=== PATIENT | male | born 1940 | race Caucasian/White ===

== ENCOUNTER 2019-07-12 11:52 | Inpatient (IN) | payer MEDICARE ==
[~2019-07-12] VITALS: Ht 177.8 cm; Wt 61.4 kg
[2019-07-12 12:30] VITALS: BP 96/44
[2019-07-12] MEDS ORDERED: DILT180C2 PO (13:19)
[2019-07-12] MEDS ORDERED: DOCU100C28 PO (13:19)
[2019-07-12] MEDS ORDERED: mutivitamin PO (13:19)
[2019-07-12] MEDS ORDERED: ASPI81TA59 PO (13:19)
[2019-07-12] MEDS ORDERED: ALBUTEROL (13:19)
[2019-07-12 15:00] VITALS: BP 97/60
[2019-07-12 16:09] LABS: BASO % 1 % (0-3); EOS % 0 % (0-3); HEMATOCRIT 40.2 % (39.0-53.0); HEMOGLOBIN 13.7 g/dL (13.0-17.5); LYMPH # 0.5 x10^3/uL (1.0-4.8); LYMPH % 16 % (24-48); MEAN CORPUSCULAR HEMOGLOBIN 32 pg (25-35); MEAN CORPUSCULAR HGB CONC 34 g/dL (31-37); MEAN CORPUSCULAR VOLUME 94 fL (79-100); MONO # 0.2 x10^3/uL (0.0-1.1); MONO % 7 % (0-9); NEUT # 2.6 x10^3/uL (1.8-7.7); NEUT % 76 % (31-73); RED CELL DISTRIBUTION WIDTH 20.1 % (11.5-14.5); WHITE BLOOD COUNT 3.4 x10^3/uL (4.0-11.0)
--- NOTE | 2019-07-12 16:11 | PDOC2 ---
GI CONSULT Reason For Consult: anorexia, weight loss HPI: HPI: 78 y/o male directly admitted by Dr. Stephens. He lives in [place] and had testing at a hospital in [place] a couple weeks ago for early satiety, decreased appetite, shortness of breath, and weight loss. Symptoms began in 03/2019. He thinks some labs were abnormal and also says the CT showed some nodules that needed to be sampled. Also mentions "heart tests." His daughter lives in the area and works in some capacity with Dr. Stephens, so they decided he should come here to live with her for further workup. Denies reflux/heartburn, dysphagia (though he says "I've always had to really chew my food well"), n/v, abd pain, diarrhea, hematochezia, or melena. Takes a stool softener now - thinks because he's eating less. Estimates 30 lb weight loss. Had a couple EGDs after vagotomy >10 years ago that were reportedly unremarkable. More than one colonoscopy in the past - first w/ a polyp, then normal repeat exams w/ last about 10 years ago. H/o PUD s/p parietal cell vagotomy in 1978. Also s/p cholecystectomy (no st ones). No liver or pancreas history. Takes ASA QD. PMH: PMH: ?HTN parietal cell vagotomy, cholecystectomy, right shoulder surgery, umbilical and right inguinal hernia repairs FH: Family History: No pertinent hx Social History: Smoke: Quit ALCOHOL: other (1 [employer] daily) Drugs: None ROS: GEN: Denies fevers, chills, sweats HEENT: Denies blurred vision, sore throat CV: Denies chest pain RESP: +SOA GI: Per HPI : Denies hematuria, dysuria ENDO: +weight loss NEURO: Denies confusion, dizziness MSK: Denies weakness, joint pain/swelling SKIN: Denies jaundice, pruritus Vitals: Vitals: Vital Signs Date Time Temp Pulse Resp B/P (MAP) Pulse Ox O2 Delivery O2 Flow Rate FiO2 07/12/19 15:00 97.3 76 18 97/60 (72) 91 Room Air 97.3 Allergies: Coded Allergies: No Known Drug Allergies (Unverified , 07/12/19) PE: GEN: quite thin, looks ill - voice is very weak w/ frequent throat clearing HEENT: Atraumatic, PERRL LUNGS: diminished anteriorly HEART: RR +murm ABD: NABS, S/ND/NT EXTREMITY: No edema SKIN: No rashes, no jaundice NEURO/PSYCH: A & O 3 A/P: A/P: Early satiety, anorexia, weight loss H/o abnormal abdominal imaging recently in [place] H/o PUD, s/p parietal cell vagotomy CRC screen, h/o colon polyp - UTD S/p cholecystectomy -- Await labs and imaging. Will also try to get records from [place]. 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 Other per Dr. Villasenor. DANELLE MORROW July 12, 2019 16:11
[2019-07-12 16:30] LABS: ALBUMIN 2.2 g/dL (3.4-5.0); ALBUMIN/GLOBULIN RATIO 1.2 (1.0-1.7); CALCIUM 9.6 mg/dL (8.5-10.1); GFR 72.1; POTASSIUM 4.5 mmol/L (3.5-5.1)
[2019-07-12 16:32] LABS: PLATELET COUNT 15 x10^3/uL (140-400)
[2019-07-12 16:34] LABS: ANISOCYTOSIS MOD; PLT ESTIMATE DECREASED (ADEQUATE); POLYCHROMASIA SLIGHT
--- NOTE | 2019-07-12 16:38 | RAD ---
Examination: CT CHEST ABDOMEN PELVIS WO History: Reason: [id number] / Spl. Instructions: / History: Comparison/Correlation: None Findings: Axial images of the chest, abdomen, and pelvis were obtained without contrast. Small bilateral pleural effusions are present. Very marked calcific involvement of the left circumflex coronary artery and to lesser extent the right coronary and left anterior cerebral arteries is noted. Small slightly greater than expected pericardial fluid is noted. Severe centrilobular emphysematous involvement of the lung dutta is present. Minimal bibasilar atelectasis is present. Nodule along the posterior aspect of the right major fissure is present measuring 0.6 cm diameter. This probably represents a perifissural lymph node or other benign process. Enlarged subcarinal lymph node is present measuring 2 cm x 2.9 cm. Aorticopulmonary window lymph node with diameter of 1 cm in short axis is present. Fullness of the right hilum is present with soft tissue density evident. Irregular margins with spiculation about the soft tissue densities best seen on axial image 28. Coarse calcification is present along the superior margin of the right pulmonary artery at the hepatic hilum inferior to this soft tissue density with spiculation. This soft tissue density process measures 3 cm transverse by 2.3 cm longitudinal by 2.4 cm anteroposterior. Encasement of the right upper lobe bronchus is noted. Mild right apical pleural thickening noted. Subtle nodular contour of the liver is present. Spleen is enlarged measuring 16.2 cm longitudinal. Pancreas is unremarkable. The gallbladder fossa is unremarkable. Kidneys are unremarkable. Renal arterial calcifications are noted. Adrenal glands are unremarkable. Minimal ascites about the liver is present anteriorly. Marked calcific involvement of the abdominal aorta and iliac arteries is noted. No inflammatory changes identified about the cecum. Appendix is not well delineated due to minimal mesenteric fat. Urinary bladder is unremarkable. Prostate gland is within upper limits of normal for size. Small amount of pelvic free fluid is present in this male patient. No extraluminal gas. Bony structures are unremarkable. Impression: Soft tissue density with encasement of the right upper lobe. Spiculated margins noted. Calcification is present subjacent to this process. Enlarged subcarinal lymph node and borderline to slightly enlarged aorticopulmonary window lymph node. Neoplastic etiology is of concern although a chronic inflammatory process is also a possibility. Correlate with prior exams if available. Consider further evaluation with PET CT exam and possibly CT chest with contrast. Subtle nodular contour of the liver of concern for cirrhosis or other hepatic fibrotic process. Marked splenomegaly is noted of concern for portal hypertension although no significant varices noted. Severe emphysematous involvement of the lung. Small bilateral pleural effusions. Minimal abdominal ascites. Pelvic free fluid. PQRS Compliance Statement: One or more of the following individualized dose reduction techniques were utilized for this examination: 1. Automated exposure control 2. Adjustment of the mA and/or kV according to patient size 3. Use of iterative reconstruction technique Electronically signed by: Librado Whittington MD (07/12/2019 4:36 PM) [id number]
--- NOTE | 2019-07-12 17:39 | NUR ---
Multiple attempts made to contact Dr. Rodrick Maradiaga but failed to call in consult.
[2019-07-12] MEDS: IV 1/2 NORMAL SALINE 1,000 ML IV SCH (17:52)
[2019-07-12 19:09] LABS: BILIRUBIN,URINE NEGATIVE (NEG); CLARITY,URINE CLEAR; NITRITE,URINE NEGATIVE (NEG); PH,URINE 5.5 (<5.0-8.0); PROTEIN,URINE NEGATIVE (NEG-TRACE)
[2019-07-12 19:20] LABS: COLOR,URINE DK YELLOW
[2019-07-12 19:22] LABS: BACTERIA,URINE 0 /HPF (0-FEW); RBC,URINE 0 /HPF (0-2); SQUAMOUS EPITHELIAL CELL,UR FEW /LPF; WBC,URINE 0 /HPF (0-4)
[2019-07-12 19:23] VITALS: BP 97/52
[2019-07-12 19:23] LABS: HYALINE CASTS, URINE FEW /HPF
--- NOTE | 2019-07-12 22:31 | HP ---
ADMIT DATE: 07/12/2019 CHIEF COMPLAINT AND HISTORY OF PRESENT ILLNESS: This 78-year-old white male was met by myself actually 2 days prior to this admission. 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 He has had decreased appetite. Has normal weight, he describes, at about 140 and was 160 in the office in 2 days prior. He was fatigued all the time. He complained of anorexia, was getting full very fast with any sort of eating. He had been more short of breath over the last couple of months with any sort of exertion. Heart rate recently has been as high as the 180s and he was started on Cardizem for this in [place]. It is not sure whether this was atrial fibrillation or not. He was also told that he may have a liver mass on a CAT scan. We tried to get records from [place] and we were unable to do so over the last couple of days as he continued to deteriorate. It was elected because of the profound weakness, failure to thrive and dehydration, to admit him to expedite workup and try to figure out what exactly is going on with him, although it is obvious that he is gravely ill. PAST MEDICAL HISTORY: Remarkable for COPD, questionable history of atrial fibrillation. PAST SURGICAL HISTORY: Remarkable for cholecystectomy, a prior right shoulder surgery, he has had a hernia repair and he has had some skin cancers removed. MEDICATIONS: Include albuterol inhaler for p.r.n. use and Cardizem CD 180 daily. ALLERGIES: He has no known drug allergies. SOCIAL HISTORY: Denies use tobacco. Uses alcohol up to once a week. Does not have any illicit drug use. He is . FAMILY HISTORY: Noncontributory. REVIEW OF SYSTEMS: As mentioned above. PHYSICAL EXAMINATION: GENERAL: He is a thin, frail, cachectic-appearing white male, who appears ill. VITAL SIGNS: Stable. He is afebrile. Blood pressure is on the low side at 91/70. HEAD, EYES, EARS, NOSE AND THROAT: Unremarkable. There is no icterus. NECK: Supple. No adenopathy or thyromegaly. CHEST: Reveals somewhat decreased breath sounds, but clear bilaterally. HEART: Regular rate and rhythm, without S3, S4 or murmur. ABDOMEN: Soft, nontender, without hepatosplenomegaly or masses appreciated. EXTREMITIES: Without cyanosis, clubbing or edema. NEUROLOGIC: Intact. IMPRESSION: Weight loss, anorexia and dehydration with multiple other problems listed above. PLAN: The patient has been admitted. I am going to get a CT scan of the abdomen. We will ask GI to see him in consultation with the anorexia. It has just come to my attention that his initial platelet count on admission was 17,000, white count depressed at less than 4000. I am going to ask Hematology if they would see in addition with a concern here being some sort of bone marrow process possibly going on in addition. ANATOLIY MENDEZ MD DR: MARBIN/alton JOB#: [id number] / [id number]
[2019-07-12 22:56] VITALS: BP 93/52
[2019-07-13 03:05] VITALS: BP 90/55
[2019-07-13 07:00] VITALS: BP 99/60
[2019-07-13] MEDS: PANTOPRAZOLE 40 MG TABLET.DR. PO SCH (08:17)
[2019-07-13] MEDS: DOCUSATE SODIUM 100 MG CAPSULE. PO SCH (08:17)
[2019-07-13] MEDS: MULTIVITAMIN with MINERAL TABLET. PO SCH (08:18)
[2019-07-13] MEDS ORDERED: ASPIRIN CHEWABLE 81 MG TABLET. PO SCH (09:00)
[2019-07-13 10:05] LABS: BASO % 1 % (0-3); EOS % 0 % (0-3); HEMATOCRIT 42.1 % (39.0-53.0); LYMPH # 0.5 x10^3/uL (1.0-4.8); LYMPH % 15 % (24-48); MEAN CORPUSCULAR HEMOGLOBIN 31 pg (25-35); MEAN CORPUSCULAR HGB CONC 33 g/dL (31-37); MEAN CORPUSCULAR VOLUME 94 fL (79-100); MONO # 0.2 x10^3/uL (0.0-1.1); MONO % 5 % (0-9); NEUT # 2.6 x10^3/uL (1.8-7.7); NEUT % 79 % (31-73); RED BLOOD COUNT 4.48 x10^6/uL (4.30-5.70); RED CELL DISTRIBUTION WIDTH 20.2 % (11.5-14.5); WHITE BLOOD COUNT 3.2 x10^3/uL (4.0-11.0)
[2019-07-13 10:25] LABS: PLATELET COUNT 13 x10^3/uL (140-400)
[2019-07-13 10:31] VITALS: BP 96/54
[2019-07-13] MEDS: IV 1/2 NORMAL SALINE 1,000 ML IV SCH (11:50)
--- NOTE | 2019-07-13 12:26 | PDOC ---
Provider Note Provider Note severe low platellets, wbc 3200, mcv ok- also TAs high but ct liver shows no masses- large spleen present- he denies ETOH or prior hepa titis- hiro likely lung CA as well- labs ordered re source of cirrhosis, dc asa, onco consult- will need lung mass bx, poss liver bx PURA BEE MD July 13, 2019 12:26
[2019-07-13 13:41] LABS: ALBUMIN 2.3 g/dL (3.4-5.0); DIRECT BILIRUBIN 1.3 mg/dL (0.0-0.2); TOTAL BILIRUBIN 2.2 mg/dL (0.2-1.0); TOTAL PROTEIN 4.3 g/dL (6.4-8.2)
[2019-07-13 13:43] LABS: PROTHROMBIN TIME PATIENT 15.5 SEC (11.7-14.0)
[2019-07-13 14:39] VITALS: BP 94/54
[2019-07-13 19:18] VITALS: BP 96/55
[2019-07-13 23:00] VITALS: BP 99/56
[2019-07-14 03:13] VITALS: BP 92/53
[2019-07-14 06:51] VITALS: BP 98/55
[2019-07-14] MEDS: PANTOPRAZOLE 40 MG TABLET.DR. PO SCH (07:58)
[2019-07-14] MEDS: DOCUSATE SODIUM 100 MG CAPSULE. PO SCH (07:58)
[2019-07-14] MEDS: MULTIVITAMIN with MINERAL TABLET. PO SCH (07:58)
[2019-07-14] MEDS: IV 1/2 NORMAL SALINE 1,000 ML IV SCH (07:59)
--- NOTE | 2019-07-14 09:12 | PDOC ---
Provider Note Provider Note vss, exam same-, no new bruising- hep b/c and others pending, re cause of cirrhosis- daily platelets, transfuse if he bleeds PURA BEE MD July 14, 2019 09:12
[2019-07-14 10:32] VITALS: BP 90/55
[2019-07-14 14:41] VITALS: BP 93/55
[2019-07-14 19:00] VITALS: BP 96/55
[2019-07-14 22:59] VITALS: BP 95/55
[2019-07-15 03:00] VITALS: BP 102/58
[2019-07-15] MEDS: IV 1/2 NORMAL SALINE 1,000 ML IV SCH (03:15)
[2019-07-15 07:00] VITALS: BP 109/61
--- NOTE | 2019-07-15 07:24 | PDOC ---
GENERAL General: vss and afebrile. awake and alert. platelet count 15K this am. awaiting hematology/oncology evaluation. exam stable. will ask for ID opinion with quest ion of TB in past. VITAL SIGNS/I&O Vital Signs/I&O: Vital Signs Date Time Temp Pulse Resp B/P (MAP) Pulse Ox O2 Delivery O2 Flow Rate FiO2 07/15/19 03:00 98.3 82 22 102/58 (73) 94 Nasal Cannula 2.0 98.3 I & O 07/14/19 07/14/19 07/15/19 15:00 23:00 07:00 Intake Total 840 ml 100 ml Output Total 700 ml 160 ml 350 ml Balance -700 ml 680 ml -250 ml ALLERGIES Allergies: Allergies Coded Allergies Type Severity Reaction Last Updated Verified No Known Drug Allergies 07/12/19 No LAB Lab: Laboratory Tests Test 07/15/19 04:36 Platelet Count 15 x10^3/uL (140-400) *L Laboratory Tests 07/15/19 04:36 ANATOLIY MENDEZ MD Jul 15, 2019 07:24
--- NOTE | 2019-07-15 08:17 | PDOC ---
Infectious Disease Note Vital Sign Vital Signs Vital Signs Date Time Temp Pulse Resp B/P (MAP) Pulse Ox O2 Delivery O2 Flow Rate FiO2 07/15/19 07:00 97.7 80 20 109/61 (77) 93 Nasal Cannula 2.0 97.7 Labs Lab Laboratory Tests Test 07/15/19 04:36 Platelet Count 15 x10^3/uL (140-400) Objective Assessment pt seen, consult dictated Plan Plan of Care // CLAY DEY MD Jul 15, 2019 08:17
--- NOTE | 2019-07-15 08:41 | PDOC ---
Provider Note Provider Note IR NOTE Lung biopsy requested. Limited non contrast enhanced ct chest shows an illdefined right hilar mass like consolidation. This is not amenable to percutaneous biopsy by position. Endobronchial biopsy may be possible, would defer to Pulm in that regard. Additionally, there is significant emphysema and patient currently has severe thrombocytopenia. Agree with recommendation for PET/CT. There are some small, but mildly prominent lymph nodes in the right axilla. If they are PET avid, would recommend biopsy of these first. YAMILA TAM MD Jul 15, 2019 08:41
[2019-07-15] MEDS: MULTIVITAMIN with MINERAL TABLET. PO SCH (09:47)
[2019-07-15] MEDS: DOCUSATE SODIUM 100 MG CAPSULE. PO SCH (09:47)
[2019-07-15] MEDS: PANTOPRAZOLE 40 MG TABLET.DR. PO SCH (09:48)
--- NOTE | 2019-07-15 09:56 | PDOC ---
Subjective: Subjective: Feels fine, no complaints. Objective: Objective: D/w nurse - awaiting heme/onc opinion. D/w Dr. Ennis. Reviewed IR note - ill defined right hilar mass like consolidation not amenable to percutaneous biopsy, agree w/ recommendation for PET/CT. Pulm asked to see, note orders for bone marrow biopsy. Vital Signs: Vital Signs Date Time Temp Pulse Resp B/P (MAP) Pulse Ox O2 Delivery O2 Flow Rate FiO2 07/15/19 07:00 97.7 80 20 109/61 (77) 93 Nasal Cannula 2.0 97.7 Labs: Laboratory Tests Test 07/15/19 04:36 Platelet Count 15 x10^3/uL Imaging: C/A/P CT Impression: Soft tissue density with encasement of the right upper lobe. Spiculated margins noted. Calcification is present subjacent to this process. Enlarged subcarinal lymph node and borderline to slightly enlarged aorticopulmonary window lymph node. Neoplastic etiology is of concern although a chronic inflammatory process is also a possibility. Correlate with prior exams if available. Consider further evaluation with PET CT exam and possibly CT chest with contrast. Subtle nodular contour of the liver of concern for cirrhosis or other hepatic fibrotic process. Marked splenomegaly is noted of concern for portal hypertension although no si gnificant varices noted. Severe emphysematous involvement of the lung. Small bilateral pleural effusions. Minimal abdominal ascites. Pelvic free fluid. PE: GEN: thin, chronically ill LUNGS:diminished HEART: RRR ABD: non-tender NEURO/PSYCH: A & O 3 A/P: Thrombocytopenia, leukopenia, elevated LFTs RUL mass, lymphadenopathy, possible cirrhosis, splenomegaly H/o anorexia/early satiety, weight loss, PUD -- AFP pending. Will review w/ Dr. Villasenor. Hemodynamically unstable?: No Is patient in severe pain?: No Is NPO status required?: No DANELLE MORROW Jul 15, 2019 09:55
--- NOTE | 2019-07-15 10:57 | CONS ---
DATE OF CONSULTATION: PULMONARY CONSULTATION ATTENDING PHYSICIAN: Dr. Chery REASON FOR CONSULTATION: Lung mass, abnormal CT chest. HISTORY OF PRESENT ILLNESS: The patient is a 78-year-old male who was admitted to the hospital with increasing appetite and about 30-pound weight loss since March. [place]. His daughter works in [place] in the medical office. As a result, he was brought in for further evaluation. He smoked for about 25 years, 2 packs per day. He states he has been feeling fatigued and tired and has no energy and has failure to thrive and was admitted with dehydration. Imaging study was performed including a CT chest, abdomen and pelvis. I have reviewed the CT chest. The patient has a right upper lobe/hilar mass, which is spiculated. It is causing some narrowing of the right upper lobe. There is evidence of subcarinal lymphadenopathy and aortopulmonary lymphadenopathy. There are small basilar pleural effusions. There is also evidence of cirrhosis of liver and marked splenomegaly and portal hypertension. There is minimal abdominal ascites. I have been asked to see him for further evaluation. He denies any headaches, no nausea, vomiting or diarrhea. His LFTs were, however, abnormal. He has lower extremity edema. No focal weakness. His platelet count was only 15,000. PAST MEDICAL HISTORY: Significant for COPD and possible history of cirrhosis. He has a long history of alcoholism. History of atrial fibrillation. PAST SURGICAL HISTORY: Including cholecystectomy and right shoulder surgery and hernia repair. MEDICATIONS: Reviewed as listed in the [facility]AD. REVIEW OF SYSTEMS: Twelve-point system obtained. Pertinent positives discussed in my history of present illness, otherwise noncontributory. All systems that were negative were reviewed as well. ALLERGIES: None. SOCIAL HISTORY: Smoked for about 25 years up to 2 packs per day, quit 20+ years ago. History of alcoholism with beer daily for 35-40 years. FAMILY HISTORY: Noncontributory to lungs. PHYSICAL EXAMINATION: VITAL SIGNS: Reviewed. Pulse ox 93% on 2 liters, afebrile. NECK: Supple. LUNGS: With diminished breath sounds. CARDIOVASCULAR: With regular rate. ABDOMEN: Soft. EXTREMITIES: With bilateral pitting edema. He has petechiae in his upper and lower extremities and some ecchymosis in the upper extremities. LABORATORY DATA: COVID-19 was negative. BUN is 38 and creatinine 1.0. LFTs were abnormal with a bilirubin of 2.2, AST 121 and ALT 86. Albumin is 2.3. INR is 1.3. IMPRESSION: 1. The patient with abnormal CT chest with a right hilar mass with encasement of the right upper lobe and some suspected endobronchial lesion along with subcarinal and aortopulmonary lymphadenopathy and thrombocytopenia. 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 2. A 30-pound weight loss in the last few months. Highly consistent with underlying malignancy. No suspicion for TB 3. Thrombocytopenia, likely bone marrow involvement with cancer vs related to Cirrhosis. 4. Long history of tobacco use, suspect underlying severe chronic obstructive pulmonary disease. 5. Long history of alcoholism with abnormal LFTs. A CT abdomen consistent with cirrhosis. 6. COVID negative. RECOMMENDATIONS: 1. I have discussed with the patient in detail. At this time, although the CT chest findings are amenable to biopsy with bronchoscopy; however, due to his severe thrombocytopenia and coagulopathy, he will be high risk for bleeding. The next best option would be bone marrow aspiration as a bone marrow metastasis is suspected and that would be more safer option. 2. Whether we make a diagnosis or not, the patient has advanced cancer with poor functional status and failure to thrive. He would not be a candidate for any form of treatment or cure. We will get an Oncology consult. 3. We would also recommend hospice. 4. Follow GI recommendation. 5. Discussed with RN and we will discuss with Interventional Radiology about bone marrow aspiration. Proceed in am d/w Dr Kessler. ALBARO SIDHU MD DR: JENNIFER/alton JOB#: [id number] / [id number]
[2019-07-15 11:00] VITALS: BP 95/54
--- NOTE | 2019-07-15 11:53 | NUR ---
SS following for discharge planning. SS reviewed pt chart and discussed with pt RN. Pt is from home is currently requiring oxygen. Pt getting bone marrow biopsy today. Pt is COVID19 negative. Pt was on services with [facility], ; fax [phone]. SS will continue to follow for discharge planning.
--- NOTE | 2019-07-15 12:13 | CONS ---
DATE OF CONSULTATION: 07/15/2019 REQUESTING PHYSICIAN: Dr. Danny Stephens. REASON FOR CONSULTATION: Possible TB. HISTORY OF PRESENT ILLNESS: This is a 78-year-old gentleman who [place] who was by connection of the doctor Kat's nurse practitioner, ended up here for workup. The patient has been losing weight. The patient has been thin, cachectic and no appetite. Denies any fever, denies any night sweats or chills. Does have cough as he has emphysema, but never had blood in the sputum, he says. Denies any nausea, vomiting, diarrhea. Denies any headache, visual symptoms, chest pain or abdominal pain. PAST MEDICAL HISTORY: Positive for COPD and possible atrial fibrillation history in the past. Also, has had cholecystectomy, right shoulder surgery, hernia repair done and skin cancer removal done. SOCIAL HISTORY: Negative for smoking. The patient did have a 30-year smoking history, quit about 20 or so years ago. Occasional alcohol use. No drug use. The patient has had and son had been diagnosed in 80s with what sounds like latent TB and they had been treated both. At that time, he was checked, was negative as apparently they got it from the hospital that they were working both. The patient has been to multiple countries and multiple times to the [place]. ALLERGIES: No known drug allergies. CURRENT MEDICATIONS: Reviewed. REVIEW OF SYSTEMS: As per HPI, all other systems reviewed and are negative. PHYSICAL EXAMINATION: GENERAL: Alert, oriented gentleman, not in any distress. He is thin, cachectic gentleman. VITAL SIGNS: Stable, afebrile. HEENT: NAD. NECK: Supple, no JVP, no lymphadenopathy. LUNGS: Clear. HEART: S1, S2 regular. ABDOMEN: Benign. EXTREMITIES: No edema, cyanosis. SKIN: Unremarkable. NEUROLOGIC: The patient is alert, awake and appropriate. No focal neurologic deficit. LABORATORY DATA: White count is 3.2. His platelets are 15,000, hemoglobin 14.0. Urinalysis unremarkable. Electrolytes are unremarkable with a BUN 38, creatinine 1. His calcium is 9.6, total bilirubin is 2.0. AST is 115, ALT is 84, alkaline phosphatase is 535, total protein is low, albumin is 2.2. CT of the abdomen and pelvis showed soft tissue density with encasement of the right upper lobe spiculated margins, calcification is present to this process, enlarged subcarinal lymph node and borderline slightly enlarged aortopulmonary window lymph node, subtle nodular contour of the liver concerning for cirrhosis, marked splenomegaly. IMPRESSION: 1. Right upper lobe mass concerning for malignancy. Tuberculosis is possible, although less likely. 2. Leukopenia and thrombocytopenia. The patient probably has that is secondary to cirrhosis of liver, although he may have a myelodysplastic syndrome. 3. Suspected cirrhosis of liver. 4. Malnutrition/cachexia. RECOMMENDATIONS: The patient is going to need biopsy. Either we will ask Pulmonary whether they can get it through the bronchoscopy and/or we may have to have Dr. Solis in Radiology to get a biopsy for the histopath as well as a biopsy for the bacterial, fungal and AFB stain and culture. Supportive care and we will continue to follow. Thank you very much, Dr. Stephens, for giving me the opportunity to participate in this patient's care. CLAY DEY MD DR: SAGE/alton JOB#: [id number] / [id number]
[2019-07-15 15:00] VITALS: BP 98/63
[2019-07-15 19:21] VITALS: BP 95/58
[2019-07-15 22:34] VITALS: BP 97/54
[2019-07-16] VITALS (20 sets, daily range): BP systolic 84–111; BP diastolic 40–70
[2019-07-16] MEDS: IV 1/2 NORMAL SALINE 1,000 ML IV SCH ×2 (00:30→21:25)
--- NOTE | 2019-07-16 07:50 | PDOC ---
GENERAL General: vss and afebrile. awake and alert. still anorexic but denies major complaints. for bone marrow biopsy today in hopes of elucidating cause of all symptoms. if not will need platelet transfusion and lung biopsy. help all consultants appreciated. continue same. VITAL SIGNS/I&O Vital Signs/I&O: Vital Signs Date Time Temp Pulse Resp B/P (MAP) Pulse Ox O2 Delivery O2 Flow Rate FiO2 07/16/19 03:09 97.4 77 18 90/52 (65) 93 Nasal Cannula 2.0 97.4 I & O 07/15/19 07/15/19 07/16/19 15:00 23:00 07:00 Intake Total 100 ml 200 ml 50 ml Output Total 1 ml 200 ml Balance 99 ml 0 ml 50 ml ALLERGIES Allergies: Allergies Coded Allergies Type Severity Reaction Last Updated Verified No Known Drug Allergies 07/12/19 No LAB Lab: Laboratory Tests Test 07/16/19 04:55 Platelet Count 14 x10^3/uL (140-400) *L Laboratory Tests 07/16/19 04:55 Justicifation of Admission Dx: Justifications for Admission: Justification of Admission Dx: Yes ANATOLIY MENDEZ MD Jul 16, 2019 07:50
[2019-07-16 08:51] LABS: BASO % 1 % (0-3); EOS % 0 % (0-3); HEMATOCRIT 37.3 % (39.0-53.0); HEMOGLOBIN 12.6 g/dL (13.0-17.5); LYMPH # 0.5 x10^3/uL (1.0-4.8); LYMPH % 17 % (24-48); MEAN CORPUSCULAR HEMOGLOBIN 32 pg (25-35); MEAN CORPUSCULAR HGB CONC 34 g/dL (31-37); MEAN CORPUSCULAR VOLUME 94 fL (79-100); MONO # 0.2 x10^3/uL (0.0-1.1); MONO % 8 % (0-9); NEUT # 2.2 x10^3/uL (1.8-7.7); NEUT % 75 % (31-73); RED BLOOD COUNT 3.96 x10^6/uL (4.30-5.70); RED CELL DISTRIBUTION WIDTH 20.4 % (11.5-14.5)
[2019-07-16 08:56] LABS: PLATELET COUNT 14 x10^3/uL (140-400)
--- NOTE | 2019-07-16 10:10 | PDOC ---
PULMONARY PROGRESS NOTES Subjective weak, no SOA Vitals Vital Signs Date Time Temp Pulse Resp B/P (MAP) Pulse Ox O2 Delivery O2 Flow Rate FiO2 07/16/19 07:00 97.9 83 20 84/40 (55) 92 Nasal Cannula 2.0 97.9 General: Alert, No acute distress Lungs: Clear Cardiovascular: S1 Abdomen: Soft Neuro Exam: Alert Extremities: Other (echymosis upper ext) Labs Laboratory Tests Test 07/15/19 04:36 07/15/19 04:38 07/16/19 04:55 Platelet Count 15 x10^3/uL (140-400) 14 x10^3/uL (140-400) Tumor Marker Alpha Fetoprotein 1.9 ng/mL (0.0-8.3) White Blood Count 3.0 x10^3/uL (4.0-11.0) Red Blood Count 3.96 x10^6/uL (4.30-5.70) Hemoglobin 12.6 g/dL (13.0-17.5) Hematocrit 37.3 % (39.0-53.0) Mean Corpuscular Volume 94 fL (79-100) Mean Corpuscular Hemoglobin 32 pg (25-35) Mean Corpuscular Hemoglobin Concent 34 g/dL (31-37) Red Cell Distribution Width 20.4 % (11.5-14.5) Neutrophils (%) (Auto) 75 % (31-73) Lymphocytes (%) (Auto) 17 % (24-48) Monocytes (%) (Auto) 8 % (0-9) Eosinophils (%) (Auto) 0 % (0-3) Basophils (%) (Auto) 1 % (0-3) Neutrophils # (Auto) 2.2 x10^3/uL (1.8-7.7) Lymphocytes # (Auto) 0.5 x10^3/uL (1.0-4.8) Monocytes # (Auto) 0.2 x10^3/uL (0.0-1.1) Eosinophils # (Auto) 0.0 x10^3/uL (0.0-0.7) Basophils # (Auto) 0.0 x10^3/uL (0.0-0.2) Laboratory Tests Test 07/16/19 04:55 White Blood Count 3.0 x10^3/uL (4.0-11.0) Red Blood Count 3.96 x10^6/uL (4.30-5.70) Hemoglobin 12.6 g/dL (13.0-17.5) Hematocrit 37.3 % (39.0-53.0) Mean Corpuscular Volume 94 fL (79-100) Mean Corpuscular Hemoglobin 32 pg (25-35) Mean Corpuscular Hemoglobin Concent 34 g/dL (31-37) Red Cell Distribution Width 20.4 % (11.5-14.5) Platelet Count 14 x10^3/uL (140-400) Neutrophils (%) (Auto) 75 % (31-73) Lymphocytes (%) (Auto) 17 % (24-48) Monocytes (%) (Auto) 8 % (0-9) Eosinophils (%) (Auto) 0 % (0-3) Basophils (%) (Auto) 1 % (0-3) Neutrophils # (Auto) 2.2 x10^3/uL (1.8-7.7) Lymphocytes # (Auto) 0.5 x10^3/uL (1.0-4.8) Monocytes # (Auto) 0.2 x10^3/uL (0.0-1.1) Eosinophils # (Auto) 0.0 x10^3/uL (0.0-0.7) Basophils # (Auto) 0.0 x10^3/uL (0.0-0.2) Medications Active Scripts Medications Dose Route/Sig Max Daily Dose Days Date Category [mutivitamin] 1 Tab PO DAILY 07/12/19 Reported [albuterlol] 07/12/19 Reported Children's Aspirin (Aspirin) 81 Mg Tab.chew 1 Tab PO DAILY 07/12/19 Reported Docusate Sodium 100 Mg Capsule 1 Cap PO DAILY 30 07/12/19 Reported Cardizem Cd (Diltiazem Hcl) 180 Mg Cap.er.24h 1 Cap PO DAILY 07/12/19 Reported Impression . 1. The patient with abnormal CT chest with a right hilar mass with encasement of the right upper lobe and some suspected endobronchial lesion along with subcarinal and aortopulmonary lymphadenopathy and thrombocytopenia. 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 2. A 30-pound weight loss in the last few months. Highly consistent with underlying malignancy. No suspicion for TB 3. Thrombocytopenia, likely bone marrow involvement with cancer vs related to Cirrhosis. 4. Long history of tobacco use, suspect underlying severe chronic obstructive pulmonary disease. 5. Long history of alcoholism with abnormal LFTs. A CT abdomen consistent with cirrhosis. 6. COVID negative. Plan . 1. I have discussed with the patient in detail. At this time, although the CT chest findings are amenable to biopsy with bronchoscopy; however, due to his severe thrombocytopenia and coagulopathy, he will be high risk for bleeding. The next best option would be bone marrow aspiration as a bone marrow metastasis is suspected and that would be more safer option. 2. Whether we make a diagnosis or not, the patient has advanced cancer with poor functional status and failure to thrive. He would not be a candidate for any form of treatment or cure. Follow Oncology rec 3. We would also recommend hospice. 4. Follow GI recommendation. 5. Discussed with RN and we will discuss with Interventional Radiology about bone marrow aspiration. scheduled today d/w Dr Kessler. ALBARO SIDHU MD Jul 16, 2019 10:10
--- NOTE | 2019-07-16 11:04 | PDOC ---
Objective: Objective: D/w nurse - no GI concerns, for bone marrow biopsy today. Stool charted today. Vital Signs: Vital Signs Date Time Temp Pulse Resp B/P (MAP) Pulse Ox O2 Delivery O2 Flow Rate FiO2 07/16/19 08:00 Room Air 07/16/19 07:00 97.9 83 20 84/40 (55) 92 2.0 97.9 Labs: Laboratory Tests Test 07/16/19 04:55 White Blood Count 3.0 x10^3/uL Red Blood Count 3.96 x10^6/uL Hemoglobin 12.6 g/dL Hematocrit 37.3 % Mean Corpuscular Volume 94 fL Mean Corpuscular Hemoglobin 32 pg Mean Corpuscular Hemoglobin Concent 34 g/dL Red Cell Distribution Width 20.4 % Platelet Count 14 x10^3/uL Neutrophils (%) (Auto) 75 % Lymphocytes (%) (Auto) 17 % Monocytes (%) (Auto) 8 % Eosinophils (%) (Auto) 0 % Basophils (%) (Auto) 1 % Neutrophils # (Auto) 2.2 x10^3/uL Lymphocytes # (Auto) 0.5 x10^3/uL Monocytes # (Auto) 0.2 x10^3/uL Eosinophils # (Auto) 0.0 x10^3/uL Basophils # (Auto) 0.0 x10^3/uL PE: GEN: sleeping, not awakened A/P: Thrombocytopenia, leukopenia, elevated LFTs RUL mass, lymphadenopathy, possible cirrhosis, splenomegaly -- Plans as above, will follow. Justicifation of Admission Dx: Justifications for Admission: Justification of Admission Dx: Yes DANELLE MORROW Jul 16, 2019 11:04
--- NOTE | 2019-07-16 11:22 | PDOC ---
Infectious Disease Note Subjective Subjective Patient is about the same. Bone marrow biopsy has been planned for today ROS ROS No nausea vomiting diarrhea chest pain shortness of breath Vital Sign Vital Signs Vital Signs Date Time Temp Pulse Resp B/P (MAP) Pulse Ox O2 Delivery O2 Flow Rate FiO2 07/16/19 08:00 Room Air 07/16/19 07:00 97.9 83 20 84/40 (55) 92 2.0 97.9 Physical Exam PHYSICAL EXAM GENERAL: Alert, oriented gentleman, not in any distress. He is thin, cachectic gentleman. VITAL SIGNS: Stable, afebrile. HEENT: NAD. NECK: Supple, no JVP, no lymphadenopathy. LUNGS: Clear. HEART: S1, S2 regular. ABDOMEN: Benign. EXTREMITIES: No edema, cyanosis. SKIN: Unremarkable. NEUROLOGIC: The patient is alert, awake and appropriate. No focal neurologic deficit. Labs Lab Laboratory Tests Test 07/16/19 04:55 White Blood Count 3.0 x10^3/uL (4.0-11.0) Red Blood Count 3.96 x10^6/uL (4.30-5.70) Hemoglobin 12.6 g/dL (13.0-17.5) Hematocrit 37.3 % (39.0-53.0) Mean Corpuscular Volume 94 fL (79-100) Mean Corpuscular Hemoglobin 32 pg (25-35) Mean Corpuscular Hemoglobin Concent 34 g/dL (31-37) Red Cell Distribution Width 20.4 % (11.5-14.5) Platelet Count 14 x10^3/uL (140-400) Neutrophils (%) (Auto) 75 % (31-73) Lymphocytes (%) (Auto) 17 % (24-48) Monocytes (%) (Auto) 8 % (0-9) Eosinophils (%) (Auto) 0 % (0-3) Basophils (%) (Auto) 1 % (0-3) Neutrophils # (Auto) 2.2 x10^3/uL (1.8-7.7) Lymphocytes # (Auto) 0.5 x10^3/uL (1.0-4.8) Monocytes # (Auto) 0.2 x10^3/uL (0.0-1.1) Eosinophils # (Auto) 0.0 x10^3/uL (0.0-0.7) Basophils # (Auto) 0.0 x10^3/uL (0.0-0.2) Objective Assessment IMPRESSION: 1. Right upper lobe mass concerning for malignancy. Tuberculosis is possible, although less likely. 2. Leukopenia and thrombocytopenia. The patient probably has that is secondary to cirrhosis of liver, although he may have a myelodysplastic syndrome. 3. Suspected cirrhosis of liver. 4. Malnutrition/cachexia. Plan Plan of Care Continue supportive care and work-up Overall prognosis is poor CLAY DEY MD Jul 16, 2019 11:22
[2019-07-16] MEDS ORDERED: FLUMAZENIL 0.5 MG/5 ML VIAL. IV ONE (12:02)
[2019-07-16] MEDS ORDERED: NALOXONE 0.4 MG/ML VIAL. ONE (12:02)
[2019-07-16] MEDS ORDERED: MIDAZOLAM HCL/PF 2 MG/2 ML VIAL. ONE (12:02)
[2019-07-16] MEDS ORDERED: fentaNYL PF VIAL 100 MCG/2 ML VIAL ONE (12:02)
[2019-07-16] MEDS ORDERED: LIDOCAINE 1% Multi-Dose 20 ML VIAL. ONE (12:03)
[2019-07-16] MEDS ORDERED: fentaNYL PF VIAL 100 MCG/2 ML VIAL IV ONE (12:45)
[2019-07-16] MEDS ORDERED: LIDOCAINE 1% Multi-Dose 20 ML VIAL. INJ ONE (12:45)
[2019-07-16] MEDS ORDERED: MIDAZOLAM HCL/PF 2 MG/2 ML VIAL. IV ONE (12:45)
[2019-07-16] MEDS: MULTIVITAMIN with MINERAL TABLET. PO SCH (13:51)
[2019-07-16] MEDS: DOCUSATE SODIUM 100 MG CAPSULE. PO SCH (13:51)
[2019-07-16] MEDS: PANTOPRAZOLE 40 MG TABLET.DR. PO SCH (13:51)
--- NOTE | 2019-07-16 15:38 | RAD ---
CT-guided bone marrow biopsy. 07/16/2019 1:34 PM Indication: Thrombocytopenia Discussion: The risks and benefits of the procedure, including but not limited to, bleeding and infection were discussed patient. Informed consent was obtained. The patient was brought to the CT scanner and placed in the prone position. A timeout procedure was performed. Firm Administrator CT imaging of the pelvis demonstrated left ilium amenable to bone marrow biopsy. The overlying soft tissues were prepped and draped using maximum sterile barrier technique. 1% lidocaine without epinephrine was administered for local anesthesia. Under intermittent CT guidance, an OncControl needle was advanced into the bone marrow of the left iliac crest. 2 Aspirates and 1 core biopsy samples were obtained. Samples were delivered to pathology was present at the time of procedure. The needle was removed and manual pressure held to achieve hemostasis. No immediate complications were identified. The procedure was performed under conscious sedation including continuous cardiopulmonary monitoring via dedicated sedation nurse. Sedation time: 20 minutes Impression: Successful CT-guided bone marrow biopsy of the left iliac crest . PQRS Compliance Statement: One or more of the following individualized dose reduction techniques were utilized for this examination: 1. Automated exposure control 2. Adjustment of the mA and/or kV according to patient size 3. Use of iterative reconstruction technique
--- NOTE | 2019-07-16 17:42 | NUR ---
RN NOTE dr. cho notified of 0700 vitals no new orders, continue to monitor unless patient becomes symptomatic.
[2019-07-17 02:33] VITALS: BP 88/53
[2019-07-17 07:00] VITALS: BP 116/97
--- NOTE | 2019-07-17 07:18 | NUR ---
Spoke with Dr. Stephens, do not hold Cardizem for patient SBP below 100.
--- NOTE | 2019-07-17 07:26 | PDOC ---
GENERAL General: vss and afebrile. awake and alert. no major complaints. had bone marrow biopsy yesterday and awaiting results. Platelet count 15K this am. some tachyarrythmias yesterday with holding of cardizem for lower blood pressure. discussed with nursing and will only hold if symptomatic which he was not yesterday am. VITAL SIGNS/I&O Vital Signs/I&O: Vital Signs Date Time Temp Pulse Resp B/P (MAP) Pulse Ox O2 Delivery O2 Flow Rate FiO2 07/17/19 02:33 98.0 90 18 88/53 (65) 95 Nasal Cannula 2.0 98.0 I & O 07/16/19 07/16/19 07/17/19 15:00 23:00 07:00 Intake Total 120 ml 0 ml 300 ml Output Total 300 ml Balance 120 ml 0 ml 0 ml ALLERGIES Allergies: Allergies Coded Allergies Type Severity Reaction Last Updated Verified No Known Drug Allergies 07/12/19 No MEDS Medications: Current Medications Medications (Trade) Dose Ordered Sig/Connie Route PRN Reason Start Time Stop Time Status Last Admin Dose Admin Midazolam HCl (Versed) 1 mg 1X ONCE IV 07/16/19 12:45 07/16/19 12:52 DC 07/16/19 12:50 Fentanyl Citrate (Fentanyl 2ml Vial) 50 mcg 1X ONCE IV 07/16/19 12:45 07/16/19 12:52 DC 07/16/19 12:50 Lidocaine HCl (Lidocaine 1% 20ml Vial) 6 ml 1X ONCE INJ 07/16/19 12:45 07/16/19 12:52 DC 07/16/19 12:50 LAB Lab: Laboratory Tests Test 07/17/19 03:28 Platelet Count 15 x10^3/uL (140-400) *L Laboratory Tests 07/17/19 03:28 Justicifation of Admission Dx: Justifications for Admission: Justification of Admission Dx: Yes Nutrition Consultation Dietary Evaluation: Recommendations by RD: Dietary education by RD, Increase Calorie Intake, Protein supplementation Comments: Continue w/regular diet as ordered, honor food preferences, and provide snacks as requested REC Ensure TID (chocolate) Expected Outcomes/Goals: PO intake to meet >75% est needs Interpretation of weight loss: >10% in 6 months Malnutrition Findings: Food and Nutrition Intake (Sev: <50% est energy req 5days Weight Status: Underweight APPL,ANATOLIY A MD Jul 17, 2019 07:26
--- NOTE | 2019-07-17 07:55 | PDOC ---
Infectious Disease Note Subjective Subjective Patient is about the same. Bone marrow biopsy done ROS ROS No nausea vomiting diarrhea chest pain Vital Sign Vital Signs Vital Signs Date Time Temp Pulse Resp B/P (MAP) Pulse Ox O2 Delivery O2 Flow Rate FiO2 07/17/19 07:00 97.8 135 18 116/97 (103) 96 Nasal Cannula 2.0 97.8 Physical Exam PHYSICAL EXAM GENERAL: Alert, oriented gentleman, not in any distress. He is thin, cachectic gentleman. VITAL SIGNS: Stable, afebrile. HEENT: NAD. NECK: Supple, no JVP, no lymphadenopathy. LUNGS: Clear. HEART: S1, S2 regular. ABDOMEN: Benign. EXTREMITIES: No edema, cyanosis. SKIN: Unremarkable. NEUROLOGIC: The patient is alert, awake and appropriate. No focal neurologic deficit. Labs Lab Laboratory Tests Test 07/17/19 03:28 Platelet Count 15 x10^3/uL (140-400) Objective Assessment IMPRESSION: 1. Right upper lobe mass concerning for malignancy. Tuberculosis is possible, although less likely. 2. Leukopenia and thrombocytopenia. The patient probably has that is secondary to cirrhosis of liver, although he may have a myelodysplastic syndrome. 3. Suspected cirrhosis of liver. 4. Malnutrition/cachexia. Plan Plan of Care Continue supportive care and work-up Overall prognosis is poor Discussed with daughter at bedside CLAY DEY MD Jul 17, 2019 07:55
[2019-07-17] MEDS: DOCUSATE SODIUM 100 MG CAPSULE. PO SCH (08:35)
[2019-07-17] MEDS: PANTOPRAZOLE 40 MG TABLET.DR. PO SCH (08:35)
[2019-07-17] MEDS: MULTIVITAMIN with MINERAL TABLET. PO SCH (08:35)
--- NOTE | 2019-07-17 10:46 | PDOC ---
Subjective: Subjective: Doing okay - doesn't like eggs or potatoes but likes toast and going to drink Ensure and coffee. Objective: Objective: No GI concerns per nurse. Vital Signs: Vital Signs Date Time Temp Pulse Resp B/P (MAP) Pulse Ox O2 Delivery O2 Flow Rate FiO2 07/17/19 08:35 135 116/97 07/17/19 08:00 Room Air 07/17/19 07:00 97.8 18 96 2.0 97.8 Labs: Laboratory Tests Test 07/17/19 03:28 Platelet Count 15 x10^3/uL PE: GEN: NAD, up to chair - a few bites of toast eaten LUNGS: CTAB HEART: RRR ABD: S/ND/NT NEURO/PSYCH: A & O 3 A/P: Thrombocytopenia, leukopenia, elevated LFTs RUL mass, lymphadenopathy, possible cirrhosis, splenomegaly S/p bone marrow biopsy 07/16/19 -- Encouraged PO, awaiting results. Justicifation of Admission Dx: Justifications for Admission: Justification of Admission Dx: Yes ADNELLE MORROW Jul 17, 2019 10:46
--- NOTE | 2019-07-17 10:51 | PDOC ---
PULMONARY PROGRESS NOTES Subjective weak, no SOA Vitals Vital Signs Date Time Temp Pulse Resp B/P (MAP) Pulse Ox O2 Delivery O2 Flow Rate FiO2 07/17/19 08:35 135 116/97 07/17/19 08:00 Room Air 07/17/19 07:00 97.8 18 96 2.0 97.8 General: Alert, No acute distress Lungs: Clear Cardiovascular: S1 Abdomen: Soft Neuro Exam: Alert Extremities: Other (echymosis upper ext) Labs Laboratory Tests Test 07/16/19 04:55 07/17/19 03:28 White Blood Count 3.0 x10^3/uL (4.0-11.0) Red Blood Count 3.96 x10^6/uL (4.30-5.70) Hemoglobin 12.6 g/dL (13.0-17.5) Hematocrit 37.3 % (39.0-53.0) Mean Corpuscular Volume 94 fL (79-100) Mean Corpuscular Hemoglobin 32 pg (25-35) Mean Corpuscular Hemoglobin Concent 34 g/dL (31-37) Red Cell Distribution Width 20.4 % (11.5-14.5) Platelet Count 14 x10^3/uL (140-400) 15 x10^3/uL (140-400) Neutrophils (%) (Auto) 75 % (31-73) Lymphocytes (%) (Auto) 17 % (24-48) Monocytes (%) (Auto) 8 % (0-9) Eosinophils (%) (Auto) 0 % (0-3) Basophils (%) (Auto) 1 % (0-3) Neutrophils # (Auto) 2.2 x10^3/uL (1.8-7.7) Lymphocytes # (Auto) 0.5 x10^3/uL (1.0-4.8) Monocytes # (Auto) 0.2 x10^3/uL (0.0-1.1) Eosinophils # (Auto) 0.0 x10^3/uL (0.0-0.7) Basophils # (Auto) 0.0 x10^3/uL (0.0-0.2) Laboratory Tests Test 07/17/19 03:28 Platelet Count 15 x10^3/uL (140-400) Medications Active Scripts Medications Dose Route/Sig Max Daily Dose Days Date Category [mutivitamin] 1 Tab PO DAILY 07/12/19 Reported [albuterlol] 07/12/19 Reported Children's Aspirin (Aspirin) 81 Mg Tab.chew 1 Tab PO DAILY 30 07/12/19 Reported Docusate Sodium 100 Mg Capsule 1 Cap PO DAILY 30 07/12/19 Reported Cardizem Cd (Diltiazem Hcl) 180 Mg Cap.er.24h 1 Cap PO DAILY 07/12/19 Reported Impression . 1. The patient with abnormal CT chest with a right hilar mass with encasement of the right upper lobe and some suspected endobronchial lesion along with subcarinal and aortopulmonary lymphadenopathy and thrombocytopenia. 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 2. A 30-pound weight loss in the last few months. Highly consistent with underlying malignancy. No suspicion for TB 3. Thrombocytopenia, likely bone marrow involvement with cancer vs related to Cirrhosis. 4. Long history of tobacco use, suspect underlying severe chronic obstructive pulmonary disease. 5. Long history of alcoholism with abnormal LFTs. A CT abdomen consistent with cirrhosis. 6. COVID negative. Plan . 1. I have discussed with the patient in detail. At this time, although the CT chest findings are amenable to biopsy with bronchoscopy; however, due to his severe thrombocytopenia and coagulopathy, he will be high risk for bleeding. s/p bone marrow aspiration 07/15 to r/o bone marrow metastasis 2. Whether we make a diagnosis or not, the patient has advanced cancer with poor functional status and failure to thrive. He would not be a candidate for any form of treatment or cure. Follow Oncology rec 3. We would also recommend hospice. 4. Follow GI recommendation. 5. Discussed with RN and d/w Dr Kessler. ALBARO SIDHU MD Jul 17, 2019 10:51
[2019-07-17 11:00] VITALS: BP 97/58
[2019-07-17 14:58] VITALS: BP 95/60
[2019-07-17] MEDS: IV 1/2 NORMAL SALINE 1,000 ML IV SCH (16:10)
[2019-07-17 18:14] VITALS: BP 97/58
--- NOTE | 2019-07-17 19:15 | NUR ---
Assessment completed vss poc explained pt in bed at time of assessment and denied pain. Call light in reach will resume care and continue to monitor pt.
[2019-07-17 22:51] VITALS: BP 79/46
[2019-07-18] VITALS (7 sets, daily range): BP systolic 82–100; BP diastolic 43–53
[2019-07-18] MEDS: PANTOPRAZOLE 40 MG TABLET.DR. PO SCH (05:38)
[2019-07-18] MEDS: DOCUSATE SODIUM 100 MG CAPSULE. PO SCH (07:11)
[2019-07-18] MEDS: MULTIVITAMIN with MINERAL TABLET. PO SCH (07:59)
--- NOTE | 2019-07-18 08:36 | PDOC ---
GENERAL General: vss and afebrile. awake and alert and denies complaints. still eating poorly. c hest clear, heart regular, abdomen benign. 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 no metastatic carcinoma. further stains and flow cytometry pending. plans to follow. otherwise same. VITAL SIGNS/I&O Vital Signs/I&O: Vital Signs Date Time Temp Pulse Resp B/P (MAP) Pulse Ox O2 Delivery O2 Flow Rate FiO2 07/18/19 07:59 82 100/43 07/18/19 07:09 97.7 18 89 Nasal Cannula 3.0 97.7 I & O 07/17/19 07/17/19 07/18/19 15:00 23:00 07:00 Intake Total 480 ml 180 ml 200 ml Balance 480 ml 180 ml 200 ml ALLERGIES Allergies: Allergies Coded Allergies Type Severity Reaction Last Updated Verified No Known Drug Allergies 07/12/19 No Justicifation of Admission Dx: Justifications for Admission: Justification of Admission Dx: Yes Nutrition Consultation Dietary Evaluation: Recommendations by RD: Dietary education by RD, Increase Calorie Intake, Protein supplementation Comments: Continue w/regular diet as ordered, honor food preferences, and provide snacks as requested REC Ensure TID (chocolate) Expected Outcomes/Goals: PO intake to meet >75% est needs Interpretation of weight loss: >10% in 6 months Malnutrition Findings: Food and Nutrition Intake (Sev: <50% est energy req 5days Weight Status: Underweight ANATOLIY MENDEZ MD Jul 18, 2019 08:36
--- NOTE | 2019-07-18 10:00 | PDOC ---
Subjective: Subjective: Doing okay, says will try to drink Ensure. 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 Vital Signs: Vital Signs Date Time Temp Pulse Resp B/P (MAP) Pulse Ox O2 Delivery O2 Flow Rate FiO2 07/18/19 08:00 Nasal Cannula 2.0 07/18/19 07:59 82 100/43 07/18/19 07:09 97.7 18 89 97.7 PE: GEN: NAD, was asleep LUNGS: diminished anteriorly HEART: RRR ABD: S/ND/NT NEURO/PSYCH: A & O 3 A/P: Thrombocytopenia, leukopenia - s/p bone marrow biopsy 07/16/19 w/ initial path as above RUL mass, lymphadenopathy - not a candidate for bronchoscopy w/ low plt Elevated LFTs (last checked 07/12), possible cirrhosis, splenomegaly -- Encouraged PO. Justicifation of Admission Dx: Justifications for Admission: Justification of Admission Dx: Yes DANELLE MORROW Jul 18, 2019 10:00
--- NOTE | 2019-07-18 10:08 | PDOC ---
Infectious Disease Note Subjective Subjective Patient is about the same. Bone marrow biopsy done ROS ROS No nausea vomiting diarrhea fever Vital Sign Vital Signs Vital Signs Date Time Temp Pulse Resp B/P (MAP) Pulse Ox O2 Delivery O2 Flow Rate FiO2 07/18/19 08:00 Nasal Cannula 2.0 07/18/19 07:59 82 100/43 07/18/19 07:09 97.7 18 89 97.7 Physical Exam PHYSICAL EXAM GENERAL: Alert, oriented gentleman, not in any distress. He is thin, cachectic gentleman. VITAL SIGNS: Stable, afebrile. HEENT: NAD. NECK: Supple, no JVP, no lymphadenopathy. LUNGS: Clear. HEART: S1, S2 regular. ABDOMEN: Benign. EXTREMITIES: No edema, cyanosis. SKIN: Unremarkable. NEUROLOGIC: The patient is alert, awake and appropriate. No focal neurologic deficit. Objective Assessment IMPRESSION: 1. Right upper lobe mass concerning for malignancy. Tuberculosis is possible, although less likely. 2. Leukopenia and thrombocytopenia. The patient probably has that is secondary to cirrhosis of liver, although he may have a myelodysplastic syndrome. 3. Suspected cirrhosis of liver. 4. Malnutrition/cachexia. Plan Plan of Care Continue supportive care and work-up Overall prognosis is poor CLAY DEY MD Jul 18, 2019 10:08
--- NOTE | 2019-07-18 10:26 | PDOC ---
PULMONARY PROGRESS NOTES Subjective Awake and Alert, remains very frail and weak Denies SOB or cough Vitals Vital Signs Date Time Temp Pulse Resp B/P (MAP) Pulse Ox O2 Delivery O2 Flow Rate FiO2 07/18/19 08:00 Nasal Cannula 2.0 07/18/19 07:59 82 100/43 07/18/19 07:09 97.7 18 89 97.7 ROS: No Nausea, No Chest Pain, No Abdominal Pain, No Increase Cough General: Alert, No acute distress Lungs: Clear Cardiovascular: S1 Abdomen: Soft Neuro Exam: Alert Extremities: Other (echymosis upper ext) Labs Laboratory Tests Test 07/17/19 03:28 Platelet Count 15 x10^3/uL (140-400) Medications Active Scripts Medications Dose Route/Sig Max Daily Dose Days Date Category [mutivitamin] 1 Tab PO DAILY 07/12/19 Reported [albuterlol] 07/12/19 Reported Children's Aspirin (Aspirin) 81 Mg Tab.chew 1 Tab PO DAILY 30 07/12/19 Reported Docusate Sodium 100 Mg Capsule 1 Cap PO DAILY 30 07/12/19 Reported Cardizem Cd (Diltiazem Hcl) 180 Mg Cap.er.24h 1 Cap PO DAILY 07/12/19 Reported Impression . 1. The patient with abnormal CT chest with a right hilar mass with encasement of the right upper lobe and some suspected endobronchial lesion along with subcarinal and aortopulmonary lymphadenopathy and thrombocytopenia. 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 2. A 30-pound weight loss in the last few months. Highly consistent with underlying malignancy. No suspicion for TB 3. Thrombocytopenia, likely bone marrow involvement with cancer vs related to Cirrhosis. 4. Long history of tobacco use, suspect underlying severe chronic obstructive pulmonary disease. 5. Long history of alcoholism with abnormal LFTs. A CT abdomen consistent with cirrhosis. 6. COVID negative. Plan . 1. Although the CT chest findings are amenable to biopsy with bronchoscopy; however, due to his severe thrombocytopenia and coagulopathy, he will be high risk for bleeding. s/p bone marrow aspiration 07/15 to r/o bone marrow metastasis-- await bone marrow biopsy results -- spoke with pathologist staining pending however lymphoma is a possibility 2. Whether we make a diagnosis or not, the patient has advanced cancer with poor functional status and failure to thrive. He would not be a candidate for any form of treatment or cure. Follow Oncology rec 3. We would also recommend hospice. 4. Follow GI recommendation. 5. Discussed with RN GI PX: ALBARO Mart MD Jul 18, 2019 10:26
[2019-07-18] MEDS: IV 1/2 NORMAL SALINE 1,000 ML IV SCH (10:28)
--- NOTE | 2019-07-18 14:47 | NUR ---
Wound Care Wound Type/Assessment: Stage II Coccyx pressure ulcer, superficial, skin is peeling. Wound bed is red and non-granulated, small area of purplish bruising, periwound bright red and blanchable. Treatment Recommendations/Plan: Xeroform or vasoline gauze to wound, cover with Aquacel foam, change every 3-4 days and prn when soiled. Pt turned onto right side with wedge and pillows, heels floated. Turn [id number] to L or R sides only, except when eating. Education provided: to pt re: frequent repositioning and pressure redistribution, and no back laying, other than while eating, pt v/u. Offloading surface/device: pt is currently on a P500 bed, wedge and pillows, wheelchair cushion in chair. Recommended Referrals/Tests: N/A Discharge Recommendations for dressings: Xeroform or vasoline gauze to wound, cover with Aquacel foam, change every 3-4 days and prn when soiled.
[2019-07-19 03:31] VITALS: BP 88/42
[2019-07-19] MEDS: IV 1/2 NORMAL SALINE 1,000 ML IV SCH (05:33)
[2019-07-19] MEDS: PANTOPRAZOLE 40 MG TABLET.DR. PO SCH ×2 (05:33→07:58)
[2019-07-19 06:13] VITALS: BP 103/58
--- NOTE | 2019-07-19 07:47 | PDOC ---
GENERAL General: vss and afebrile. awake and alert. exam stable. still waiting on final bone mar row results with plans to follow. encouraged increased activity and po intake. VITAL SIGNS/I&O Vital Signs/I&O: Vital Signs Date Time Temp Pulse Resp B/P (MAP) Pulse Ox O2 Delivery O2 Flow Rate FiO2 07/19/19 06:13 97.8 81 15 103/58 (73) 96 Nasal Cannula 2.0 97.8 I & O 07/18/19 07/18/19 07/19/19 15:00 23:00 07:00 Intake Total 300 ml 600 ml 200 ml Output Total 200 ml 200 ml Balance 300 ml 400 ml 0 ml ALLERGIES Allergies: Allergies Coded Allergies Type Severity Reaction Last Updated Verified No Known Drug Allergies 07/12/19 No Justicifation of Admission Dx: Justifications for Admission: Justification of Admission Dx: Yes Nutrition Consultation Dietary Evaluation: Recommendations by RD: Dietary education by RD, Increase Calorie Intake, Protein supplementation Comments: Continue w/regular diet as ordered, honor food preferences, and provide snacks as requested REC Ensure TID (chocolate) Expected Outcomes/Goals: PO intake to meet >75% est needs Interpretation of weight loss: >10% in 6 months Malnutrition Findings: Food and Nutrition Intake (Sev: <50% est energy req 5days Weight Status: Underweight ANATOLIY MENDEZ MD Jul 19, 2019 07:47
[2019-07-19] MEDS: DOCUSATE SODIUM 100 MG CAPSULE. PO SCH (07:54)
[2019-07-19] MEDS: MULTIVITAMIN with MINERAL TABLET. PO SCH (07:58)
--- NOTE | 2019-07-19 09:34 | PDOC ---
Objective: Objective: D/w nurse - not eating much but did drink Ensure this morning, awaiting bone marrow, then plans for rehab. Vital Signs: Vital Signs Date Time Temp Pulse Resp B/P (MAP) Pulse Ox O2 Delivery O2 Flow Rate FiO2 07/19/19 08:00 Nasal Cannula 2.0 07/19/19 07:58 81 103/58 07/19/19 06:13 97.8 15 96 97.8 PE: GEN: NAD - many bottles on Ensure lined up on bedside tray LUNGS: NC HEART: RRR on monitor ABD: non-distended NEURO/PSYCH: sleeping, not awakened A/P: Thrombocytopenia, leukopenia RUL mass, lymphadenopathy Elevated LFTs, possible cirrhosis, splenomegaly -- Awaiting bone marrow biopsy results, will follow. Justicifation of Admission Dx: Justifications for Admission: Justification of Admission Dx: Yes DANELLE MORROW Jul 19, 2019 09:34
--- NOTE | 2019-07-19 10:25 | PDOC ---
PULMONARY PROGRESS NOTES Subjective Awake and Alert, remains very frail and weak Denies SOB or cough Vitals Vital Signs Date Time Temp Pulse Resp B/P (MAP) Pulse Ox O2 Delivery O2 Flow Rate FiO2 07/19/19 08:00 Nasal Cannula 2.0 07/19/19 07:58 81 103/58 07/19/19 06:13 97.8 15 96 97.8 ROS: No Nausea, No Chest Pain, No Abdominal Pain, No Increase Cough General: Alert, No acute distress Lungs: Clear Cardiovascular: S1 Abdomen: Soft Neuro Exam: Alert Extremities: Other (echymosis upper ext) Skin: Warm, Dry Medications Active Scripts Medications Dose Route/Sig Max Daily Dose Days Date Category [mutivitamin] 1 Tab PO DAILY 07/12/19 Reported [albuterlol] 07/12/19 Reported Children's Aspirin (Aspirin) 81 Mg Tab.chew 1 Tab PO DAILY 30 07/12/19 Reported Docusate Sodium 100 Mg Capsule 1 Cap PO DAILY 30 07/12/19 Reported Cardizem Cd (Diltiazem Hcl) 180 Mg Cap.er.24h 1 Cap PO DAILY 07/12/19 Reported Impression . 1. The patient with abnormal CT chest with a right hilar mass with encasement of the right upper lobe and some suspected endobronchial lesion along with subcarinal and aortopulmonary lymphadenopathy and thrombocytopenia. This is highly consistent with primary lung cancer with metastasis to the lymph nodes.? Lymphoma 2. A 30-pound weight loss in the last few months. Highly consistent with underlying malignancy. No suspicion for TB 3. Thrombocytopenia, likely bone marrow involvement with cancer vs related to Cirrhosis. 4. Long history of tobacco use, suspect underlying severe chronic obstructive pulmonary disease. 5. Long history of alcoholism with abnormal LFTs. A CT abdomen consistent with cirrhosis. 6. COVID negative. Plan . 1. Although the CT chest findings are amenable to biopsy with bronchoscopy; however, due to his severe thrombocytopenia and coagulopathy, he will be high risk for bleeding. s/p bone marrow aspiration 07/15 to r/o bone marrow metastasis-- await bone marrow biopsy results -- spoke with pathologist. No obvious cancer but staining pending as lymphoma is a possibility -- lymphoma markers pending 2. Whether we make a diagnosis or not, the patient has advanced cancer with poor functional status and failure to thrive. He would not be a candidate for any form of treatment or cure. Follow Oncology rec 3. We would also recommend hospice, 4. Follow GI recommendation. 5. Discussed with RN GI PX: ALBARO Mart MD Jul 19, 2019 10:25
[2019-07-19 10:38] VITALS: BP 94/64
[2019-07-19 15:00] VITALS: BP 89/62
[2019-07-19 19:16] VITALS: BP 89/38
[2019-07-19] MEDS ORDERED: DIGOXIN IV 500 MCG/2 ML AMPUL. IV ONE (22:00)
[2019-07-19 23:16] VITALS: BP 81/40
--- NOTE | 2019-07-19 23:35 | NUR ---
Patient heart rhythm went into A-fib RVR and heart rate running between 130-160 for a prolonged time. Contacted Dr. Stephens and a one time order of digoxin 0.25mcg. Heart Rate running between 105-120.
[2019-07-20] MEDS: IV 1/2 NORMAL SALINE 1,000 ML IV SCH ×2 (01:56→22:24)
[2019-07-20 03:56] VITALS: BP 80/51
[2019-07-20 07:15] VITALS: BP 77/45
--- NOTE | 2019-07-20 08:58 | PDOC ---
Provider Note Provider Note paf a few hours now nsr, has had in past echo done in [place] but no results=- will do echo, no metop re hypotension- repeat hepatic pane, cortisol- d/w daughter Justicifation of Admission Dx: Justifications for Admission: Justification of Admission Dx: Yes PURA BEE MD Jul 20, 2019 08:58
[2019-07-20] MEDS: DOCUSATE SODIUM 100 MG CAPSULE. PO SCH (09:00)
[2019-07-20] MEDS: MULTIVITAMIN with MINERAL TABLET. PO SCH (09:20)
[2019-07-20] MEDS: POLYETHYLENE GLYCOL 3350 17 GM PACKET. PO PRN (09:20)
[2019-07-20 10:18] LABS: ALBUMIN 1.9 g/dL (3.4-5.0); DIRECT BILIRUBIN 1.7 mg/dL (0.0-0.2); TOTAL BILIRUBIN 2.6 mg/dL (0.2-1.0); TOTAL PROTEIN 3.9 g/dL (6.4-8.2)
--- NOTE | 2019-07-20 10:55 | PDOC ---
PULMONARY PROGRESS NOTES Subjective Remains weak, Denies SOB or cough Vitals Vital Signs Date Time Temp Pulse Resp B/P (MAP) Pulse Ox O2 Delivery O2 Flow Rate FiO2 07/20/19 09:20 60 103/63 07/20/19 07:49 Nasal Cannula 3.0 07/20/19 07:15 97.7 18 88 97.7 ROS: No Nausea, No Chest Pain, No Abdominal Pain, No Increase Cough General: Alert, No acute distress Lungs: Clear Cardiovascular: S1 Abdomen: Soft Neuro Exam: Alert Extremities: Other (echymosis upper ext) Skin: Warm, Dry Labs Laboratory Tests Test 07/20/19 09:40 Total Bilirubin 2.6 mg/dL (0.2-1.0) Direct Bilirubin 1.7 mg/dL (0.0-0.2) Aspartate Amino Transf (AST/SGOT) 111 U/L (15-37) Alanine Aminotransferase (ALT/SGPT) 87 U/L (16-63) Alkaline Phosphatase 641 U/L (46-116) Total Protein 3.9 g/dL (6.4-8.2) Albumin 1.9 g/dL (3.4-5.0) Laboratory Tests Test 07/20/19 09:40 Total Bilirubin 2.6 mg/dL (0.2-1.0) Direct Bilirubin 1.7 mg/dL (0.0-0.2) Aspartate Amino Transf (AST/SGOT) 111 U/L (15-37) Alanine Aminotransferase (ALT/SGPT) 87 U/L (16-63) Alkaline Phosphatase 641 U/L (46-116) Total Protein 3.9 g/dL (6.4-8.2) Albumin 1.9 g/dL (3.4-5.0) Medications Active Scripts Medications Dose Route/Sig Max Daily Dose Days Date Category [mutivitamin] 1 Tab PO DAILY 07/12/19 Reported [albuterlol] 07/12/19 Reported Children's Aspirin (Aspirin) 81 Mg Tab.chew 1 Tab PO DAILY 30 07/12/19 Reported Docusate Sodium 100 Mg Capsule 1 Cap PO DAILY 30 07/12/19 Reported Cardizem Cd (Diltiazem Hcl) 180 Mg Cap.er.24h 1 Cap PO DAILY 07/12/19 Reported Impression . 1. The patient with abnormal CT chest with a right hilar mass with encasement of the right upper lobe and some suspected endobronchial lesion along with subcarinal and aortopulmonary lymphadenopathy and thrombocytopenia. This is highly consistent with primary lung cancer with metastasis to the lymph nodes.? Lymphoma 2. A 30-pound weight loss in the last few months. Highly consistent with underlying malignancy. No suspicion for TB 3. Thrombocytopenia, likely bone marrow involvement with cancer vs related to Cirrhosis. 4. Long history of tobacco use, suspect underlying severe chronic obstructive pulmonary disease. 5. Long history of alcoholism with abnormal LFTs. A CT abdomen consistent with cirrhosis. 6. COVID negative. 7. Hypotension Plan . 1. Although the CT chest findings are amenable to biopsy with bronchoscopy; however, due to his severe thrombocytopenia and coagulopathy, he will be high risk for bleeding. s/p bone marrow aspiration 07/15 to r/o bone marrow metastasis-- await bone marrow biopsy results -- spoke with pathologist. No obvious cancer but staining pending as lymphoma is a possibility -- lymphoma markers pending 2. Whether we make a diagnosis or not, the patient has advanced cancer with poor functional status and failure to thrive. He would not be a candidate for any form of treatment or cure. Follow Oncology rec 3. We would also recommend hospice, 4. Follow GI recommendation. 5. Follow ECHO results and hepatic panel D/W RN GI PX: ALBARO Mart MD Jul 20, 2019 10:55
[2019-07-20 11:30] VITALS: BP 92/58
[2019-07-20 15:18] VITALS: BP 88/55
[2019-07-20 19:25] VITALS: BP 95/58
[2019-07-20 22:55] VITALS: BP 86/47
[2019-07-21 03:55] VITALS: BP 85/51
[2019-07-21 07:00] VITALS: BP 106/66
[2019-07-21] MEDS: DOCUSATE SODIUM 100 MG CAPSULE. PO SCH (09:00)
[2019-07-21] MEDS: MULTIVITAMIN with MINERAL TABLET. PO SCH (09:10)
[2019-07-21] MEDS: PANTOPRAZOLE 40 MG TABLET.DR. PO SCH (09:11)
[2019-07-21] MEDS: POLYETHYLENE GLYCOL 3350 17 GM PACKET. PO PRN (09:11)
--- NOTE | 2019-07-21 09:51 | PDOC ---
Provider Note Provider Note status same, exam same- has PACs but no more af- echo pending- continue supportive care, bx pending Justicifation of Admission Dx: Justifications for Admission: Justification of Admission Dx: Yes PURA BEE MD Jul 21, 2019 09:51
--- NOTE | 2019-07-21 10:41 | PDOC ---
PULMONARY PROGRESS NOTES Subjective Pt. denies SOB or increased cough, Remains on 3 liters N/C Vitals Vital Signs Date Time Temp Pulse Resp B/P (MAP) Pulse Ox O2 Delivery O2 Flow Rate FiO2 07/21/19 09:10 88 106/66 07/21/19 08:00 Nasal Cannula 3.0 07/21/19 07:00 97.6 18 90 97.6 ROS: No Nausea, No Chest Pain, No Abdominal Pain, No Increase Cough General: Alert, No acute distress Lungs: Clear Cardiovascular: S1, Other (PACS ) Abdomen: Soft Neuro Exam: Alert Extremities: Other (echymosis upper ext) Skin: Warm, Dry Labs Laboratory Tests Test 07/20/19 09:40 Total Bilirubin 2.6 mg/dL (0.2-1.0) Direct Bilirubin 1.7 mg/dL (0.0-0.2) Aspartate Amino Transf (AST/SGOT) 111 U/L (15-37) Alanine Aminotransferase (ALT/SGPT) 87 U/L (16-63) Alkaline Phosphatase 641 U/L (46-116) Total Protein 3.9 g/dL (6.4-8.2) Albumin 1.9 g/dL (3.4-5.0) Medications Active Scripts Medications Dose Route/Sig Max Daily Dose Days Date Category [mutivitamin] 1 Tab PO DAILY 07/12/19 Reported [albuterlol] 07/12/19 Reported Children's Aspirin (Aspirin) 81 Mg Tab.chew 1 Tab PO DAILY 30 07/12/19 Reported Docusate Sodium 100 Mg Capsule 1 Cap PO DAILY 30 07/12/19 Reported Cardizem Cd (Diltiazem Hcl) 180 Mg Cap.er.24h 1 Cap PO DAILY 07/12/19 Reported Impression . 1. The patient with abnormal CT chest with a right hilar mass with encasement of the right upper lobe and some suspected endobronchial lesion along with subcarinal and aortopulmonary lymphadenopathy and thrombocytopenia. This is h ighly consistent with primary lung cancer with metastasis to the lymph nodes.? Lymphoma 2. A 30-pound weight loss in the last few months. Highly consistent with underlying malignancy. No suspicion for TB 3. Thrombocytopenia, likely bone marrow involvement with cancer vs related to Cirrhosis-- S/P bone Bx on 07/16/2019 4. Long history of tobacco use, suspect underlying severe chronic obstructive pulmonary disease. 5. Long history of alcoholism with abnormal LFTs. A CT abdomen consistent with cirrhosis. 6. COVID negative. 7. Hypotension- improved Plan . 1. Although the CT chest findings are amenable to biopsy with bronchoscopy; however, due to his severe thrombocytopenia and coagulopathy, he will be high risk for bleeding. s/p bone marrow aspiration 07/15 to r/o bone marrow metastasis-- await bone marrow biopsy results--No obvious cancer but staining pending as lymphoma is a possibility -- lymphoma markers pending 2. Follow oncology recommendations 3. Patient is a good candidate for hospice, discussed with pt., wants to await results og bone marrow biopsy and discuss with his family 4. Follow GI recommendation. 5. ECHO pending 6. Hepatic panel worsening TB and LFT D/W RN GI PX: protonix ALBARO SIDHU MD Jul 21, 2019 10:41
[2019-07-21 11:00] VITALS: BP 93/53
[2019-07-21 15:20] VITALS: BP 95/59
[2019-07-21] MEDS: IV 1/2 NORMAL SALINE 1,000 ML IV SCH (18:02)
[2019-07-21 19:39] VITALS: BP 85/46
[2019-07-21 22:46] VITALS: BP 80/45
[2019-07-22 03:13] VITALS: BP 90/45
[2019-07-22 07:00] VITALS: BP 94/55
[2019-07-22] MEDS: PANTOPRAZOLE 40 MG TABLET.DR. PO SCH ×2 (08:21→17:45)
[2019-07-22] MEDS: MULTIVITAMIN with MINERAL TABLET. PO SCH (08:21)
[2019-07-22] MEDS: DOCUSATE SODIUM 100 MG CAPSULE. PO SCH (08:22)
--- NOTE | 2019-07-22 08:24 | PDOC ---
GENERAL General: vss and afebrile. awake and alert and daughter present. exam stable. spoke with pathology and they are going to sign out bone marrow as a Hodgkins lymphoma. has thrush and will treat same. will need oncology to talk to patient to make plan. VITAL SIGNS/I&O Vital Signs/I&O: Vital Signs Date Time Temp Pulse Resp B/P (MAP) Pulse Ox O2 Delivery O2 Flow Rate FiO2 07/22/19 07:00 97.8 87 20 94/55 (68) 96 Nasal Cannula 3.0 97.8 I & O 07/21/19 07/21/19 07/22/19 14:59 22:59 06:59 Intake Total 1320 ml 200 ml Output Total 300 ml 200 ml Balance 1020 ml 0 ml ALLERGIES Allergies: Allergies Coded Allergies Type Severity Reaction Last Updated Verified No Known Drug Allergies 07/12/19 No Justicifation of Admission Dx: Justifications for Admission: Justification of Admission Dx: Yes Nutrition Consultation Dietary Evaluation: Recommendations by RD: Dietary education by RD, Increase Calorie Intake, Protein supplementation Comments: Continue w/regular diet as ordered, honor food preferences, and provide snacks as requested Continue w/Ensure TID - wound healing, need for extra calories/protein REC MVI q day and Vit C 500 mg q day - wound healing Expected Outcomes/Goals: PO intake to meet >75% est needs - not met, goal ongoinig Interpretation of weight loss: >10% in 6 months Malnutrition Findings: Food and Nutrition Intake (Sev: <50% est energy req 5days Weight Status: Underweight ANATOLIY MENDEZ MD Jul 22, 2019 08:24
[2019-07-22] MEDS: NYSTATIN 100,000 UNITS/ML 5 ML ORAL.SUSP. SWSW SCH ×4 (09:00→22:51)
--- NOTE | 2019-07-22 10:22 | PDOC ---
Subjective: Subjective: I asked how long his mouth has been sore - "a couple weeks, I kept telling everyone" - described as a "canker sore." Denies painful swallowing or difficultly swallowing - says once it gets beyond his mouth "there's no problem." Denies abdominal pain. Stooled this morning and would like to back off on stool softeners. Objective: Objective: D/w nurse - no plans to DC until bone marrow results back and family/pt make decision re: plan of care moving forward. Not eating much, has sores in his mouth and it hurts to eat so started on Nystatin today. Mentions he has been eating mostly acidic foods. Tolearted oatmeal without issue this morning. Pending bone marrow results and family decisions, nurse says they might want a PEG tube. Reviewed chart later - "spoke with pathology and they are going to sign out bone marrow as a Hodgkins lymphoma. has thrush and will treat same. will need oncology to talk to patient to make plan." Vital Signs: Vital Signs Date Time Temp Pulse Resp B/P (MAP) Pulse Ox O2 Delivery O2 Flow Rate FiO2 07/22/19 08:22 86 99/60 07/22/19 07:50 Nasal Cannula 3.0 07/22/19 07:00 97.8 20 96 97.8 PE: GEN: NAD, thin LUNGS: diminished HEART: RRR ABD: soft, non-tender NEURO/PSYCH: A & O 3 A/P: Thrombocytopenia, leukopenia RUL mass, lymphadenopathy Elevated LFTs, possible cirrhosis, splenomegaly -- Discussion as above. Not a good PEG candidate w/ plt 15 (checked 07/17/19). Could also try GI cocktail for mouth pain. Justicifation of Admission Dx: Justifications for Admission: Justification of Admission Dx: Yes DANELLE MORROW Jul 22, 2019 10:22
--- NOTE | 2019-07-22 10:28 | PDOC ---
PULMONARY PROGRESS NOTES Subjective Pt. denies SOB or increased cough, Remains on 3 liters N/C Vitals Vital Signs Date Time Temp Pulse Resp B/P (MAP) Pulse Ox O2 Delivery O2 Flow Rate FiO2 07/22/19 08:22 86 99/60 07/22/19 07:50 Nasal Cannula 3.0 07/22/19 07:00 97.8 20 96 97.8 ROS: No Nausea, No Chest Pain, No Abdominal Pain, No Increase Cough General: Alert, No acute distress Lungs: Clear Cardiovascular: S1, Other (PACS ) Abdomen: Soft Neuro Exam: Alert Extremities: Other (echymosis upper ext) Skin: Warm, Dry Medications Active Scripts Medications Dose Route/Sig Max Daily Dose Days Date Category [mutivitamin] 1 Tab PO DAILY 07/12/19 Reported [albuterlol] 07/12/19 Reported Children's Aspirin (Aspirin) 81 Mg Tab.chew 1 Tab PO DAILY 30 07/12/19 Reported Docusate Sodium 100 Mg Capsule 1 Cap PO DAILY 30 07/12/19 Reported Cardizem Cd (Diltiazem Hcl) 180 Mg Cap.er.24h 1 Cap PO DAILY 07/12/19 Reported Impression . 1. The patient with abnormal CT chest with a right hilar mass with encasement of the right upper lobe and some suspected endobronchial lesion along with subcarinal and aortopulmonary lymphadenopathy and thrombocytopenia. d/w pathology. BM aspiration c/w Hodgkins Lymphoma 2. A 30-pound weight loss in the last few months. Highly consistent with underlying malignancy. No suspicion for TB 3. Thrombocytopenia, - S/P bone Bx on 07/16/2019/ Hodgkins lymphoma 4. Long history of tobacco use, suspect underlying severe chronic obstructive pulmonary disease. 5. Long history of alcoholism with abnormal LFTs. A CT abdomen consistent with cirrhosis. 6. COVID negative. 7. Hypotension- improved Plan . 1. d/w pathology. c/w with Hodgkins lymphoma / poor candidate for Rx 2. Follow oncology recommendations 3. Patient is a good candidate for hospice, discussed with pt., 4. Follow GI recommendation. 5. ECHO pending 6. Hepatic panel worsening D/W RN GI PX: protonix rec hospice care ALBARO SIDHU MD Jul 22, 2019 10:28
[2019-07-22] MEDS ORDERED: LIDO:MAALOX 1:1 20 ML SINGLE DOSE. PO PRN (10:30)
[2019-07-22 11:07] VITALS: BP 92/55
[2019-07-22 14:57] VITALS: BP 89/50
--- NOTE | 2019-07-22 15:00 | PDOC2 ---
CONSULT Date of Consult Date of Consult DATE: 07/22/19 TIME: 14:08 Reason for Consult Reason for Consult: Hodgkin's lymphoma Referring Physician Referring Physician: Dr. Cota Identification/Chief Complaint Chief Complaint Hodgkin's lymphoma Source Source: Chart review History of Present Illness Reason for Visit: Mr. Selvin Romero is a 78 year-old male who presented to [facility] on 07/11/2019. He presented to [facility] on 07/11/2019. He reported undergoing testing at a hospital in [place] a few weeks prior, as he developed early satiety, decreased appetite, shortness of breath, and weight loss in 03/2019. He reported the CT he underwent showed some nodules that needed to be sampled. He denied reflux/heartburn, dysphagia, nausea, vomiting, diarrhea, or melena. He did admit to a 30-lb weight loss since ~ 03/2019. He has a history of PUD s/p parietal cell vagotomy in 1978. Labs on 07/13/2019 showed WBC 3.2, Hgb 14, Plt 13. On 07/12/2019, while admitted, CT chest, abdomen, pelvis was obtained. It showed soft tissue density with encasement of the right upper lobe. Spiculated margins noted. Calcification present subjacent to this process. Enlarged subcarinal lymph node and borderline to slightly enlarged aorticopulmonary window lymph node. Neoplastic etiology is of concern although a chronic inflammatory process is also a possibility. Correlate with prior exams if available. Subtle nodular contour of the liver of concern for cirrhosis or hepatic fibrotic process. Marked splenomegaly is noted of concern for portal hypertension although no significant varices noted. Severe emphysematous involvement of lung. On 07/16/2019, BM biopsy was performed. Pathology showed Hodgkins lymphoma. Selvin is being seen at the request of Dr. Cota. Abundio is being seen today via telecommunications platform. His daughter Pricilla was present for duration of visit. Fatigued. Reports he has not had any alcohol for ~ 3 weeks. "It was just 2-3 sips of beer." No chest pains. No shortness of breath. No cough or congestion. No headaches or dizziness. No nausea or vomiting. No abdominal pain. No diarrhea or constipation. No bright red blood per rectum or melena. No night sweats. Past Medical History Pulmonary: COPD Past Surgical History Past Surgical History: Cholecystectomy, Hernia Repair, Other (Shouler surgery. ) Social History Quit ALCOHOL: other (1 Budweiser daily) Drugs: None Current Medications Current Medications Current Medications Sodium Chloride 1,000 ml @ 50 mls/hr Q20H IV Last administered on 07/21/19at 18:02; Start 07/12/19 at 15:15 Aspirin (Aspirin Chewable) 81 mg DAILY PO ; Start 07/13/19 at 09:00; Stop 07/13/19 at 12:14; Status DC Diltiazem HCl (Cardizem 24hr Cd) 180 mg DAILY PO Last administered on 07/22/19at 08:22; Start 07/13/19 at 09:00 Docusate Sodium (Colace) 100 mg DAILY PO Last administered on 07/17/19at 08:35; Start 07/13/19 at 09:00 Multivitamins (Thera M Plus) 1 tab DAILY PO Last administered on 07/22/19at 08:21; Start 07/13/19 at 09:00 Pantoprazole Sodium (Protonix) 40 mg DAILYAC PO Last administered on 07/22/19at 08:21; Start 07/13/19 at 07:30 Polyethylene Glycol (miraLAX PACKET) 17 gm PRN DAILY PRN PO CONSTIPATION Last administered on 07/21/19at 09:11; Start 07/12/19 at 16:15 Midazolam HCl (Versed) 2 mg STK-MED ONCE .ROUTE ; Start 07/16/19 at 12:02; Stop 07/16/19 at 12:02; Status DC Fentanyl Citrate (Fentanyl 2ml Vial) 100 mcg STK-MED ONCE .ROUTE ; Start 07/16/19 at 12:02; Stop 07/16/19 at 12:03; Status DC Flumazenil (Romazicon) 0.5 mg STK-MED ONCE IV ; Start 07/16/19 at 12:02; Stop 07/16/19 at 12:03; Status DC Naloxone HCl (Narcan) 0.4 mg STK-MED ONCE .ROUTE ; Start 07/16/19 at 12:02; Stop 07/16/19 at 12:03; Status DC Lidocaine HCl (Lidocaine 1% 20ml Vial) 20 ml STK-MED ONCE .ROUTE ; Start 07/16/19 at 12:03; Stop 07/16/19 at 12:03; Status DC Midazolam HCl (Versed) 1 mg 1X ONCE IV Last administered on 07/16/19at 12:50; Start 07/16/19 at 12:45; Stop 07/16/19 at 12:52; Status DC Fentanyl Citrate (Fentanyl 2ml Vial) 50 mcg 1X ONCE IV Last administered on 07/16/19at 12:50; Start 07/16/19 at 12:45; Stop 07/16/19 at 12:52; Status DC Lidocaine HCl (Lidocaine 1% 20ml Vial) 6 ml 1X ONCE INJ Last administered on 07/16/19at 12:50; Start 07/16/19 at 12:45; Stop 07/16/19 at 12:52; Status DC Digoxin (Lanoxin) 250 mcg 1X ONCE IV Last administered on 07/19/19at 21:47; Start 07/19/19 at 22:00; Stop 07/19/19 at 22:01; Status DC Nystatin (Nystatin Oral Susp) 5 ml [id number] SWSW Last administered on 07/22/19at 12:50; Start 07/22/19 at 09:00 Multi-Ingredient Mouthwash/Gargle (Gi Cocktail) 20 ml PRN QID PRN PO mouth pain Last administered on 07/22/19at 12:50; Start 07/22/19 at 10:30 Active Scripts Active Reported [mutivitamin] 1 Tab PO DAILY [albuterlol] Children's Aspirin (Aspirin) 81 Mg Tab.chew 1 Tab PO DAILY 30 Days Docusate Sodium 100 Mg Capsule 1 Cap PO DAILY 30 Days Cardizem Cd (Diltiazem Hcl) 180 Mg Cap.er.24h 1 Cap PO DAILY Allergies Allergies: Coded Allergies: No Known Drug Allergies (Unverified , 07/12/19) Physical Exam General: Alert, No acute distress, Other (Older frail male appearing in no acute distress. Laying in the hospital bed. ) HEENT: Other (Wearing glasses. ) Lungs: Clear to auscultation Heart: Regular rate Skin: No rashes Neuro: Normal speech Psych/Mental Status: Mental status NL MUSCULOSKELETAL: No joint tenderness Vitals VITALS Vital Signs Date Time Temp Pulse Resp B/P (MAP) Pulse Ox O2 Delivery O2 Flow Rate FiO2 07/22/19 11:07 97.4 88 18 92/55 (67) 93 Nasal Cannula 3.0 97.4 Images Images 07/12/2019 CT CHEST ABDOMEN PELVIS WO History: Reason: [id number] / Spl. Instructions: / History: Comparison/Correlation: None Axial images of the chest, abdomen, and pelvis were obtained without contrast. Small bilateral pleural effusions are present. Very marked calcific involvement of the left circumflex coronary artery and to lesser extent the right coronary and left anterior cerebral arteries is noted. Small slightly greater than expected pericardial fluid is noted. Severe centrilobular emphysematous involvement of the lung dutta is present. Minimal bibasilar atelectasis is present. Nodule along the posterior aspect of the right major fissure is present measuring 0.6 cm diameter. This probably represents a perifissural lymph node or other benign process. Enlarged subcarinal lymph node is present measuring 2 cm x 2.9 cm. Aorticopulmonary window lymph node with diameter of 1 cm in short axis is present. Fullness of the right hilum is present with soft tissue density evident. Irregular margins with spiculation about the soft tissue densities best seen on axial image 28. Coarse calcification is present along the superior margin of the right pulmonary artery at the hepatic hilum inferior to this soft tissue density with spiculation. This soft tissue density process measures 3 cm transverse by 2.3 cm longitudinal by 2.4 cm anteroposterior. Encasement of the right upper lobe bronchus is noted. Mild right apical pleural thickening noted. Subtle nodular contour of the liver is present. Spleen is enlarged measuring 16.2 cm longitudinal. Pancreas is unremarkable. The gallbladder fossa is unremarkable. Kidneys are unremarkable. Renal arterial calcifications are noted. Adrenal glands are unremarkable. Minimal ascites about the liver is present anteriorly. Marked calcific involvement of the abdominal aorta and iliac arteries is noted. No inflammatory changes identified about the cecum. Appendix is not well delineated due to minimal mesenteric fat. Urinary bladder is unremarkable. Prostate gland is within upper limits of normal for size. Small amount of pelvic free fluid is present in this male patient. No extraluminal gas. Bony structures are unremarkable. Impression: Soft tissue density with encasement of the right upper lobe. Spiculated margins noted. Calcification is present subjacent to this process. Enlarged subcarinal lymph node and borderline to slightly enlarged aorticopulmonary window lymph node. Neoplastic etiology is of concern although a chronic inflammatory process is also a possibility. Correlate with prior exams if available. Consider further evaluation with PET CT exam and possibly CT chest with contrast. Subtle nodular contour of the liver of concern for cirrhosis or other hepatic fibrotic process. Marked splenomegaly is noted of concern for portal hypertension although no significant varices noted. Severe emphysematous involvement of the lung. Small bilateral pleural effusions. Minimal abdominal ascites. Pelvic free fluid. Assessment/Plan Assessment/Plan 78 year-old male with clinical stage IV Hodgkins lymphoma, based on recent BM biopsy. Since patient does not have significant anemia, severe thrombocytopenia is likely related not just to BM involvement by lymphoma, but also has immune mechanism. Rising LFTs in the absence of recent alcohol intake are concerning for liver involvement with lymphoma. Outpatient PET/CT would be helpful in distinguishing between cirrhotic liver and liver involvement with lymphoma or both. At this point, the patient is not a candidate for chemotherapy due to poor performance status and abnormal liver function. However, he might be a candidate for Adcetris/Adriamycin/vinblastine/darcarbazine regimen if his performance status/LFT's improve, with growth factor support. Steroids and testosterone replacement might be helpful in improving patient's performance status, in addition to physical therapy. Alternative options such as hospice vs. attempt to improve performance status and subsequent chemotherapy, were discussed. The patient and his daughter Tyra Riggs, [employer]. The patient wanted to proceed with an attempt for treating his disease. PLAN: 1. CBC, BMP, LFT, LDH, uric acid daily. Free/total testosterone, B12, MMA, TSH, free T4, PSA, next available. 2. Dex 20 mg IV daily x 4 (may switch to po if discharged home). 3. PET/CT as outpatient. 4. Port placement, if patient becomes a candidate for IV chemotherapy. 5. Adcetris, Adriamycin, vinblastine, dacarbazine with Neulasta support as outpatient, if PS improves. 6. [facility]. BRETT CONNLEL MD Jul 22, 2019 15:00
[2019-07-22] MEDS: IV 1/2 NORMAL SALINE 1,000 ML IV SCH (15:01)
--- NOTE | 2019-07-22 16:09 | CARD ---
MR#: [id number] Date of Study: 07/22/2019 Ordering Physician: PURA BEE, Referring Physician: PURA BEE, Tech: Allie Knight APPROVED REPORT EXAM: Two-dimensional and M-mode echocardiogram with Doppler and color Doppler. Other Information Quality : AverageHR: 100bpm Technically limited study due to body habitus. INDICATION Atrial Fibrillation 2D DIMENSIONS Left Atrium(2D)3.1 (1.6-4.0cm)IVSd1.2 (0.7-1.1cm) Aortic Root(2D)3.6 (2.0-3.7cm)LVDd4.6 (3.9-5.9cm) LVOT Diameter2.0 (1.8-2.4cm)PWd1.1 (0.7-1.1cm) LVDs2.9 (2.5-4.0cm)FS (%) 37.0 % SV65.1 ml Aortic Valve AoV Peak Jose Guadalupe.150.8cm/sAoV VTI27.6cm AO Peak GR.9.1mmHgLVOT VTI 7.02cm AO Mean GR.8mmHg Mitral Valve MV E Jydzgbbr10.9cm/sMV E Peak Gr.83mmHg MV DECEL [id number] A Ipqeuzmo25.0cm/s MV E Mean Gr.2mmHgE/A Ratio1.9 Tricuspid Valve TR P. Dbcgztvu578lh/sRAP QVIDSZQD5vyBr TR Peak Gr.19heAvFJNG47hlUc LEFT VENTRICLE The left ventricle is normal size. There is borderline concentric left ventricular hypertrophy. The l eft ventricular systolic function is normal and the ejection fraction is within normal range. The Eje ction Fraction is 55-60%. Septal motion consistent with conduction abnormality. Transmitral Doppler f low pattern is Grade II-pseudonormal filling dynamics. RIGHT VENTRICLE The right ventricle is normal size. There is normal right ventricular wall thickness. The right ventr icular systolic function is normal. ATRIA The left atrium is not well visualized. The right atrium is mildly dilated. The interatrial septum is intact with no evidence for an atrial septal defect or patent foramen ovale as noted on 2-D or Doppl er imaging. AORTIC VALVE The aortic valve is thickened but opens well. Doppler and Color Flow revealed no significant aortic r egurgitation. There is no significant aortic valvular stenosis. MITRAL VALVE The mitral valve is thickened but opens well. There is no evidence of mitral valve prolapse. There is no mitral valve stenosis. Doppler and Color-flow revealed trace to mild mitral regurgitation. TRICUSPID VALVE The tricuspid valve is normal in structure and function. Doppler and Color Flow revealed trace to mil d tricuspid regurgitation with an estimated PAP of 34 mmHg. There is no tricuspid valve stenosis. PULMONIC VALVE The pulmonic valve is not well visualized. Doppler and Color Flow revealed no pulmonic valvular regur gitation. GREAT VESSELS The aortic root is normal in size. The IVC is normal in size and collapses >50% with inspiration. PERICARDIAL EFFUSION There is a small pericardial effusion with no hemodynamic significance. Critical Notification Critical Value: No <Conclusion> The left ventricle is normal size. The left ventricular systolic function is normal and the ejection fraction is within normal range. The Ejection Fraction is 55-60%. There is borderline concentric left ventricular hypertrophy. Doppler and Color Flow revealed no significant aortic regurgitation. There is no significant aortic valvular stenosis. Doppler and Color-flow revealed trace to mild mitral regurgitation. Doppler and Color Flow revealed trace to mild tricuspid regurgitation with an estimated PAP of 34 mmH g. There is a small pericardial effusion with no hemodynamic significance. Signed by : Angelito Dior MD Electronically Approved : 07/22/2019 16:09:18
--- NOTE | 2019-07-22 16:50 | NUR ---
Wound Care Wound Type/Assessment: Stage III Coccyx pressure ulcer, krystal-wound skin is peeling. Wound bed is red and non-granulated with slough, small area of purplish bruising, periwound bright red and blanchable. pt also has 2 new skin tears to right and left arm, pictured and measured with xeroform and foam Treatment Recommendations/Plan: All wounds: Xeroform or vasoline gauze to wound, cover with Aquacel foam, change every 3-4 days and prn when soiled. Pt turned onto right side with wedge and pillows, heels floated. Turn [id number] to L or R sides only, except when eating. Education provided: to pt re: frequent repositioning and pressure redistribution, and no back laying, other than while eating, pt v/u. Offloading surface/device: pt is currently on a P500 bed, wedge and pillows, wheelchair cushion in chair. Recommended Referrals/Tests: N/A Discharge Recommendations for dressings: Xeroform or vasoline gauze to wound, cover with Aquacel foam, change every 3-4 days and prn when soiled.
[2019-07-22] MEDS ORDERED: DEXAMETHASONE SOD PHOS 20 MG/5 ML VIAL. IV ONE (17:04)
[2019-07-22] MEDS ORDERED: TESTOSTERONE CYPIONATE 200 MG/ML VIAL. IM ONE (17:15)
[2019-07-22 19:41] VITALS: BP 93/48
[2019-07-22 22:22] VITALS: BP 91/54
[2019-07-22] MEDS ORDERED: ASPI81TA59 PO (23:38)
[2019-07-22] MEDS ORDERED: ALBUTEROL (23:41)
[2019-07-22] MEDS ORDERED: mutivitamin PO (23:41)
[2019-07-22] MEDS ORDERED: DOCU100C28 PO (23:41)
[2019-07-22] MEDS ORDERED: DILT180C2 PO (23:41)
[2019-07-23 03:06] VITALS: BP 82/51
[2019-07-23 07:00] VITALS: BP 89/48
[2019-07-23] MEDS ORDERED: Lido:Maalox 1:1 PO (07:40)
[2019-07-23] MEDS ORDERED: NYST100054 SWSW (07:40)
[2019-07-23] MEDS ORDERED: PANT40TA77 PO (07:40)
--- NOTE | 2019-07-23 07:43 | SNU/HH DC ---
DISCHARGE WITH HOME HEALTH DISCHARGE INFORMATION: Discharge Date: Jul 23, 2019 Condition on Discharge: Stable CODE STATUS: Code Status: Full HOME HEALTH: Face to Face: I certify this patient is under my care and that I, or a nurse practitioner or physician's printer assistant working with me, had a face to face encounter that meets the physician face to face encounter requirements with this patient on 07/22/19. [facility] For: Assess & Educate Safety, Medication Management, physical chemist For Eval/Treatment: Yes Physical Therapy For: Evalulation/Treatment Occupational Therapy For: Evaluation/Treatment Pt Meets Homebound Status: Extreme weakness w/ amb., Fatigue w/ amb., Limited distance walking POST DISCHARGE ORDERS: DIET AFTER DISCHARGE: Regular CERTIFICATION STATEMENT: Certification Statement: Certification Statement: Based on the above finding, I certify that this patient is confined to the home and needs intermittent long-term care, physical therapy and/or speech therapy, or continues to need occupational therapy.~ This patient is under my care, and I have initiated the establishment of the plan of care.~ This patient will be followed by myself or a community physician who will periodically review the plan of care. Home Meds Active Scripts Pantoprazole Sodium (PANTOPRAZOLE SODIUM ) 40 Mg Tablet.dr, 40 MG PO [id number] for ulcer prophylaxis for 30 Days, #30 TAB.SR Prov:ANATOLIY MENDEZ MD 07/23/19 [Lido:Maalox 1:1] 20 ML ORAL.SUSP No Conflict Check, 20 ML PO PRN QID PRN for mouth pain for 10 Days, #10 Prov:ANATOLIY MENDEZ MD 07/23/19 Nystatin (NYSTATIN) 100,000 Unit/1 Ml Oral.susp, 5 ML SWSW [id number] for thrush for 10 Days, #10 MISC Prov:ANATOLIY MENDEZ MD 07/23/19 Reported Medications Diltiazem Hcl (CARDIZEM CD) 180 Mg Cap.er.24h, 1 CAP PO DAILY for heart, #90 CAP 1 Refill 07/22/19 Docusate Sodium (DOCUSATE SODIUM) 100 Mg Capsule, 1 CAP PO DAILY for constipation for 30 Days, #30 CAP 0 Refills 07/22/19 [albuterlol] No Conflict Check 07/22/19 [mutivitamin] No Conflict Check, 1 TAB PO DAILY for vitamin 07/22/19 Discontinued Reported Medications Aspirin (Children's Aspirin) 81 Mg Tab.chew, 1 TAB PO DAILY for blood thinner for 30 Days, #30 TAB 0 Refills 07/22/19 ANATOLIY MENDEZ MD Jul 23, 2019 07:43
[2019-07-23] MEDS ORDERED: DEXAMETHASONE SOD PHOS 20 MG/5 ML VIAL. IV SCH (08:00)
[2019-07-23] MEDS: DOCUSATE SODIUM 100 MG CAPSULE. PO SCH (09:00)
[2019-07-23] MEDS: PANTOPRAZOLE 40 MG TABLET.DR. PO SCH (09:02)
[2019-07-23] MEDS: MULTIVITAMIN with MINERAL TABLET. PO SCH (09:03)
[2019-07-23] MEDS: NYSTATIN 100,000 UNITS/ML 5 ML ORAL.SUSP. SWSW SCH (09:59)
--- NOTE | 2019-07-23 10:29 | PDOC ---
Subjective: Subjective: Daughter present who is a nurse practitioner. Mouth isn't as sore today, ate some breakfast. No dysphagia/odynophagia, or abd pain. Objective: Objective: D/w nurse - figuring out prescriptions... plans to DC w/ home health. Reviewed chart. Vital Signs: Vital Signs Date Time Temp Pulse Resp B/P (MAP) Pulse Ox O2 Delivery O2 Flow Rate FiO2 07/23/19 09:03 88 07/23/19 07:00 97.9 20 89/48 (62) 91 Nasal Cannula 3.0 97.9 Imaging: Echocardiogram 07/21 <Conclusion> The left ventricle is normal size. The left ventricular systolic function is normal and the ejection fraction is within normal range. The Ejection Fraction is 55-60%. There is borderline concentric left ventricular hypertrophy. Doppler and Color Flow revealed no significant aortic regurgitation. There is no significant aortic valvular stenosis. Doppler and Color-flow revealed trace to mild mitral regurgitation. Doppler and Color Flow revealed trace to mild tricuspid regurgitation with an estimated PAP of 34 mmHg. There is a small pericardial effusion with no hemodynamic significance. PE: GEN: NAD, resting, thin LUNGS: clear anteriorly HEART: RRR ABD: soft, non-tender NEURO/PSYCH: A & O 3 - speech a bit difficult to understand at times - weak A/P: Stage IV Hodgkins lymphoma -- DC/oncology plans noted. Justicifation of Admission Dx: Justifications for Admission: Justification of Admission Dx: Yes DANELLE MORROW Jul 23, 2019 10:29
[2019-07-23] MEDS ORDERED: TEST200V3 IM (10:34)
[2019-07-23] MEDS ORDERED: DEXA4TAB63 PO (10:35)
[2019-07-23] MEDS ORDERED: MULT-245 PO (10:39)
--- NOTE | 2019-07-23 10:59 | PDOC ---
PULMONARY PROGRESS NOTES Subjective Pt. denies SOB or increased cough, Remains on 3 liters N/C Vitals Vital Signs Date Time Temp Pulse Resp B/P (MAP) Pulse Ox O2 Delivery O2 Flow Rate FiO2 07/23/19 09:03 88 07/23/19 07:00 97.9 20 89/48 (62) 91 Nasal Cannula 3.0 97.9 ROS: No Nausea, No Chest Pain, No Abdominal Pain, No Increase Cough General: Alert, No acute distress Lungs: Clear Cardiovascular: S1, Other (PACS ) Abdomen: Soft Neuro Exam: Alert Extremities: Other (echymosis upper ext) Skin: Warm, Dry Medications Active Scripts Medications Dose Route/Sig Max Daily Dose Days Date Category [mutivitamin] 1 Tab PO DAILY 07/12/19 Reported [albuterlol] 07/12/19 Reported Children's Aspirin (Aspirin) 81 Mg Tab.chew 1 Tab PO DAILY 30 07/12/19 Reported Docusate Sodium 100 Mg Capsule 1 Cap PO DAILY 30 07/12/19 Reported Cardizem Cd (Diltiazem Hcl) 180 Mg Cap.er.24h 1 Cap PO DAILY 07/12/19 Reported Impression . 1. The patient with abnormal CT chest with a right hilar mass with encasement of the right upper lobe and some suspected endobronchial lesion along with subcarinal and aortopulmonary lymphadenopathy and thrombocytopenia. d/w pathology. BM aspiration c/w Hodgkins Lymphoma 2. A 30-pound weight loss in the last few months. Highly consistent with underlying malignancy. No suspicion for TB 3. Thrombocytopenia, - S/P bone Bx on 07/16/2019/ Hodgkins lymphoma 4. Long history of tobacco use, suspect underlying severe chronic obstructive pulmonary disease. 5. Long history of alcoholism with abnormal LFTs. A CT abdomen consistent with cirrhosis. 6. COVID negative. 7. Hypotension- improved Plan . 1. d/w pathology. c/w with Hodgkins lymphoma / poor candidate for Rx 2. Follow oncology recommendations 3. Patient is a good candidate for hospice, discussed with pt., 4. Follow GI recommendation. 5. d/w daughter in detail today 6. Hepatic panel worsening D/W RN ok with dc today and f/u with oncology ALBARO SIDHU MD Jul 23, 2019 10:59
[2019-07-23 11:00] VITALS: BP 94/51
--- NOTE | 2019-07-23 11:06 | PATHOLOGY ---
[facility] Accession Number: [id number] . 01 Material submitted: . PART A: bone - BONE MARROW BIOPSY PART B: bone - BONE MARROW CLOT PART C: bone - BONE MARROW ASPIRATE SLIDE PART D: peripheral nerves - BONE MARROW PERIPHERAL SMEAR PART E: bone - BONE MARROW FLOW . 01 Clinical history: . Thrombocytopenia . 02 Diagnosis: Peripheral smear: - Marked thrombocytopenia. - Mild leukopenia and absolute lymphopenia. - Mild normocytic normochromic anemia. . 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 (JPM:yohana; 07/23/2019) [facility] [place] 07/23/2019 0758 Local . 02 Comment: The peripheral smear shows marked thrombocytopenia, mild leukopenia and absolute lymphopenia, and mild normocytic normochromic anemia. The bone marrow is hypercellular and shows trilineage hematopoiesis, no significant dyspoiesis, and multifocal involvement by malignant lymphoma. These foci have a granulomatous appearance, and contain variable numbers of atypical large mononuclear cells in addition to rare binucleated cells having features of Harvinder-Maureen cells. A panel of immunoperoxidase stains reveal these atypical cells to have an immunophenotypic profile consistent with classic Hodgkin's lymphoma. 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 Lymphoma involves approximately 30-50% of the bone marrow. The case is also examined by Dr. Tatum Merchant, hematopathologist, who concurs with the diagnosis. (JPM:yohana; 07/23/2019) . Special stains performed: AFB stain and GMS for yeast/fungus on A1, a reticulin stain on A1, an iron stain on B1, immunoperoxidase stains for PAX5, CD20, CD3, CD15, CD30, MUM-1, CD45, KELLY, and ALK1. . 02 Electronically signed: . Amos Gilbert MD, Pathologist NPI- [id number] . 01 Gross description: . A. The specimen is received in formalin, labeled "Selvin Romero, BM BX". Received is a multiple needle cores of light herndon bone measuring 1.1 x 1.1 x 0.3 cm in aggregate. The specimen is submitted entirely in cassette A1, following light decalcification. . B. The specimen is received in formalin, labeled "Selvin Romero, BM aspirate clot". Received is blood coagulum measuring 2.7 x 2.3 x 0.3 cm in aggregate dimensions. The specimen is filtered and entirely submitted in cassette B1 ([facility]; 07/16/2019) JFQ/JFQ 07/23/2019 0723 Local . 02 Microscopic: . Laboratory Data: The WBC count is 3.0 K/CMM, and the automated WBC differential reveals 75% neutrophils, 17% lymphs, 8% monos, and 1% baso. The RBC count is 3.96 M/CMM, hemoglobin 12.6 G/DL, hematocrit 37.3%, MCV 94 FL, MCH 32 PG, MCHC 34 G/DL, and the RDW is 20.4%. The platelet count is 14 K/CMM. The PT is 15.5 sec. The total protein is 4.0 G/DL, albumin 2.2 G/DL, and the globulin is 1.8 G/DL. The BUN is 38 MG/DL, creatinine 1.0 MG/DL, total bilirubin 2.2 MG/DL and direct bilirubin 1.3 MG/DL. The ALK Phos is 567 U/L, ALT 86 U/L, and AST 121 U/L. . Peripheral Smear: The peripheral smear is reviewed. The WBC count is mildly decreased. There is an absolute lymphopenia. The absolute neutrophil count is low normal. The WBC differential reveals a predominance of segmented neutrophils, with small populations of lymphocytes and monocytes noted. Neutrophils do not show dysplastic changes. There is no significant neutrophilic left shift. There are no circulating blasts. There is no leukoerythroblastic reaction. The lymphocyte population consists predominantly of small lymphocytes. Red blood cells predominantly appear normochromic and normocytic. There is mild polychromasia. Red blood cells show moderate anisocytosis and mild poikilocytosis with a few ovalocytes and occasional target cells noted. Platelets are markedly decreased with an occasional large platelet noted. (JPM/db; 07/18/2019) . Aspirate Smears: Two Chou's-stained and one iron-stained aspirate smears are examined. The smears contain several marrow particles which appear hypercellular for age. There is trilineage hematopoiesis. Erythroid maturation predominantly appears normoblastic. There are no megaloblastic or significant dysplastic changes. Granulopoiesis qualitatively appears normal. There is no increase of blasts and no obvious dysplastic changes. Megakaryocytes are present and are of variable ploidy. There is no increase of plasma cells or lymphocytes. There are scattered histiocytes, some of which show erythrophagocytosis. There are also rare atypical large cells which have basophilic cytoplasm with cytoplasmic blebs, and which possess enlarged hyperchromatic nuclei containing prominent nucleoli. The iron stain is insufficient for evaluation of iron stores due to a lack of marrow particles. . Bone Marrow Biopsy and Clot Section: Sections of the bone marrow biopsy reveal segments of hypercellular bone marrow which is on the order of 80%-90% cellular. The clot sections contain multiple marrow particles, the majority of which range between 50% and 80% cellular. Both the biopsy and clot sections show scattered granulomatous appearing lesions which are composed predominantly of lymphocytes and histiocytes with occasional eosinophils noted. These granulomatous lesions contain variable numbers of admixed atypical large cells, which possess enlarged hyperchromatic nuclei containing macronucleoli. A rare binucleated cell having Harvinder-Maureen cell features is identified. The bone marrow biopsy also shows focal marrow fibrosis with crush artifact. The remaining bone marrow is hypercellular and shows trilineage hematopoiesis, comprised of an admixture of erythroid and granulocytic precursors, and adequate megakaryocytes which are of variable ploidy. Special stains for acid-fast bacilli and fungi are obtained and yield the following results: . AFB (A1): Negative for acid-fast organisms. GMS for yeast/fungus (A1): Negative for yeast/fungi. . A panel of immunoperoxidase stains is obtained on block B1 and yields the following results: . PAX5: Atypical large cells within granulomas positive. CD20: Subset of atypical large cells within granulomas positive. CD3: Majority of small lymphocytes within granulomas and remaining marrow particles positive. CD15: Atypical large cells within granulomas positive. CD30: Atypical large cells within granulomas positive. MUM1: Atypical large cells within granulomas positive. CD45: Atypical large cells within granulomas surrounded by small lymphocytes which are positive. KELLY: Atypical large cells within granulomas negative. ALK-1: Atypical large cells within granulomas negative. . A reticulin stain obtained on the biopsy shows an increase of reticulin fibers within granulomas and within areas of marrow fibrosis. An iron stain obtained on the clot section shows focal adequate reticuloendo- thelial iron stores. . Special Studies: Bone marrow submitted for flow cytometric analysis has a viability of 98.1%. Granulocytes comprise 84.9% of total cells and show phenotypic evidence of maturation. Monocytes comprise 4.6% of total cells and show phenotypic evidence of maturation. CD45 dim, CD34 positive cells comprise 0.5% of total cells. Lymphocytes comprise 7.7% of total cells. T-cells comprise 90% of lymphoid cells, are heterogeneous, and show a CD4/CD8 ratio of 1.2. NK-cells comprise 8% of lymphoid cells. Mature B-cells comprise 1% of lymphoid cells and appear polyclonal. . Bone marrow submitted for cytogenetic analysis shows a normal male karyotype in all cells analyzed. . (JPM/db/yohana; 07/23/2019) . . 02 Pathologist provided ICD-10: D72.819, D72.810, D69.6, D64.9 . 02 CPT . 563918, 167733, 100056, 866588, 476541, 160925, 749615, 486583, [id number], D62710 Specimen Comment: A courtesy copy of this report has been sent to [phone] Specimen Comment: [id number] Specimen Comment: Report sent to / DR MENDEZ Performed at: 01 [facility] [address], [place] [id number] MD Chidi Montenegro MD Phone: [phone] Performed at: 02 [facility] [address], [place] [id number] MD Amos Gilbert MD Phone: [phone]
--- NOTE | 2019-07-23 12:45 | NUR ---
Discharge Note: [facility] Discharge instructions and discharge home medications reviewed with Family Member and a copy given. All questions have been answered and understanding verbalized. The following instructions and handouts were given: discharge insturctions, called perscriptions to pharmacy, follow up appointment Discontinued lines and drains: periphal IV discontinuedff, dressing clean, dry and intact. Patient discharged to home with home health via wheelchair
--- NOTE | 2019-07-24 14:51 | DS ---
DATE OF DISCHARGE: 07/23/2019 PRIMARY DIAGNOSIS: Hodgkin's lymphoma. ADDITIONAL DIAGNOSES: Chronic obstructive pulmonary disease, atrial fibrillation with a rapid ventricular response, profound weight loss, anorexia, weakness, thrombocytopenia and elevated liver function tests. CHIEF COMPLAINT AND HISTORY OF PRESENT ILLNESS: This 78-year-old white male met by myself 2 days prior to this admission. 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 He has had decreased appetite, his normal weight he describes around 160 and was 140 in the office 2 days prior. He is fatigued all the time, anorexia, getting full with any sort of eating and been more short of breath. Heart rate recently been as high as 180s and he was started on Cardizem in [place] and he was not sure whether this was atrial fibrillation or not. He was told he may have a liver mass on a CAT scan. We will try to get records from [place]. We were unable to do so. Over the last couple of days as he continued to deteriorate, it was elected to admit to expedite diagnosis. SUMMARY OF STAY: The patient was admitted. LABORATORY DATA : Initial laboratory was remarkable for a platelet count of 15,000. His white count was somewhat depressed at 3400 with a normal hemoglobin of 13.7. Sedimentation rate was 0. Elevated liver function tests were throughout the stay elevated. He had severe protein-calorie malnutrition. Bilirubin 3 days prior to discharge was 2.6. Alkaline phosphatase was 641. Imaging during the stay including CT chest, abdomen and pelvis showed soft tissue density with encasement of the right upper lobe with spiculated margins noted. He had an enlarged subcarinal lymph node and a borderline to slightly enlarged aortopulmonary window lymph node. He had subtle nodular contour of the liver, concern for cirrhosis, marked splenomegaly was noted without significant varices. He had severe emphysematous involvement of the lungs, small bilateral pleural effusions, minimal abdominal ascites. Consultants included Oncology, Pulmonary, GI, Infectious Disease with question of TB with the patient having had and a child with the same. Pulmonary initially thought this was a primary lung cancer which spread including the bone marrow. Bone marrow took a while to elucidate with noncaseating granulomas and eventually coming up with a final diagnosis of Hodgkin's lymphoma. Oncology felt he was functionally too depressed to consider aggressive chemotherapy, but would start him on some steroids at home and was given Decadron in the hospital, will be continued at home to see if his functional status will improve to the point where he can consider more therapy with an outpatient appointment in several days following the hospitalization as well as considering a PET scan. The patient was anxious to return to home, was quite deconditioned. We will consider hospice if treatment recommended in the next week or 2. DISPOSITION: The patient is discharged to home. DIET: Regular diet. ACTIVITY: As tolerated, office in 2 weeks. DISCHARGE MEDICATIONS: Listed on the med rec and have been addressed. ANATOLIY MENDEZ MD DR: MARBIN/alton JOB#: [id number] / [id number]
== END 2019-07-23 13:15 | disposition home health service (06) | DRG 840 ==
LOC: 2 SOUTH 11:52
PROVIDERS: ADMIT Family Medicine; ATTEND Family Medicine
PROC: 07DR3ZX Extraction of Iliac Bone Marrow, Percutaneous Approach, Diagnostic (ICD-10-PCS; principal; 2019-07-16)
DX: C81.90 Hodgkin lymphoma, unspecified, unspecified site (principal); E43 Unspecified severe protein-calorie malnutrition; C34.90 Malignant neoplasm of unspecified part of unspecified bronchus or lung; J90 Pleural effusion, not elsewhere classified; K76.6 Portal hypertension; R64 Cachexia; Z68.1 Body mass index [BMI] 19.9 or less, adult; D69.6 Thrombocytopenia, unspecified; E86.0 Dehydration; D72.819 Decreased white blood cell count, unspecified; I10 Essential (primary) hypertension; I95.9 Hypotension, unspecified; I48.91 Unspecified atrial fibrillation; J43.9 Emphysema, unspecified; K12.0 Recurrent oral aphthae; K40.90 Unilateral inguinal hernia, without obstruction or gangrene, not specified as recurrent; K70.30 Alcoholic cirrhosis of liver without ascites; R62.7 Adult failure to thrive; Z20.828 Contact with and (suspected) exposure to other viral communicable diseases; Z79.82 Long term (current) use of aspirin; Z85.828 Personal history of other malignant neoplasm of skin; Z87.11 Personal history of peptic ulcer disease; Z87.891 Personal history of nicotine dependence; Z90.49 Acquired absence of other specified parts of digestive tract; Z92.21 Personal history of antineoplastic chemotherapy
CPT/HCPCS: 36415; 38222; 71250; 74176; 77012; 80053; 80076; 81001; 82105; 82533; 82607; 84443; 85025; 85049; 85610; 85651; 86803; 87340; 88184; 88185; 88237; 88305; 88311; 88312; 88313; 88341; 88342; 93306; 99152; J1071; J1100; J1160; J2250; J3010; J3490; 97116-GP; 97530-GO; 97535-GO; G0378; U0003-CS